=== PATIENT | female | born 1945 | race Caucasian/White ===

== ENCOUNTER 2017-04-16 15:51 | Emergency (ER) | payer MEDICARE, SELFPAY ==
[2017-04-16 16:17] VITALS: BP 124/80; PULSE 93; RESP 18; TEMP 36.9; O2SAT 98; BMI 26.3
--- NOTE | 2017-04-16 16:18 | XR_ITS ---
XR chest 2V HISTORY: ITS.REASON: COUGH ORDERING PHYSICIAN: Sara Fuller PATIENT AGE: 71 years COMPARISON: None available FINDINGS: There is severe lower thoracic scoliosis convex right. There is mild tortuosity/ectasia of the descending thoracic aorta. Normal heart size. No lobar consolidation or collapse. Minimal atelectasis or fibrosis is present in the left lung base. IMPRESSION: Minimal atelectasis or fibrosis in the left lung base. Severe thoracic scoliosis
--- NOTE | 2017-04-16 16:35 | HMH.EDUTC ---
[facility] [place] Disposition Clinical Impression: Influenza Disposition: Home, Self-Care Condition on Discharge: Good Instructions: Influenza Additional Instructions: ? Too late to start Tamiflu. Most effective when started within 48 hours of symptoms onset ? Lots of rest ? Increase Fluids water, Gatorade, powerade, pedialyte,if infant/toddler/child ? Alternate Tylenol and / or ibuprofen as discussed for fever, aches, chills x 24 hours without medication for symptoms ? Follow up IMMEDIATELY for new or worsening Symptoms OR no noticeable improvement over the next 48-72 hours, 911 for difficulty or breathing ? You or your child area contagious until no fever, aches, chills for 24 hours with medication for symptoms Referrals: Esperanza Figueroa APRN [Primary Care Provider] - Time of Disposition: 17:25 Medical Decision Making - Medical Records Medical records reviewed: Yes: I reviewed the patient's medical records. Vital Signs: 04/16/17 16:17 Temperature 98.5 F Temperature Source Temporal Artery Scan Pulse Rate [Right Brachial] 93 H Respiratory Rate 18 Blood Pressure [Right Arm] 124/80 Blood Pressure Mean [Right Arm] 94 Blood Pressure Source [Right Arm] Automatic Cuff Blood Pressure Position [Right Arm] Sitting 02 Sat by Pulse Oximetry 98 Oxygen Delivery Method Room Air - Lab Data Lab Results 04/16/17 16:17: Influenza Type A Ag Negative, Influenza Type B Ag Positive A Orders (Tests/Meds): ORDERS Category Date Time Status CXR 2 view (NOT portable) [XR chest 2V] Stat Exams 04/16/17 16:18 Taken - Radiology Data #1 Image(s): Chest Image Reviewed: Yes I reviewed the patient's radiology image w/the ED provider Preliminary Findings: Normal/NAD - Leighton Inquiry Pt receiving controlled substance: No Leighton was queried for this patient: No [facility] [place] HPI - General Stated complaint: nausea, chest congestion, cough, diarrhea Mode of Arrival: Ambulatory Source of Information: Patient Limitations: No Limitations Description of Symptoms (Recalled from Triage Doc. by RN): SUSPECT FLU OR PNEUMONIA HEENT Symptoms (Recalled from RN notes): No Resp Symptoms (Recalled from RN notes): Yes ( SUSPECTED FLU OR PNEUMONIA ) Skin Symptoms (Recalled from RN notes): No MS Symptoms (Recalled from RN notes): No Functional Status (Recalled from RN notes): N/A - History of Present Illness Provider Complaint: Patient state that she began to get sick on and began running a fever State that she had dental surgery on Mon State that she has been having fever on and off ever since State that she feels like she either has flu or pneumonia - Related Data Allergies Allergy/AdvReac Type Severity Reaction Status Date / Time Phenobarbital Allergy Intermediate I-RASH,HEART Uncoded 02/21/17 15:26 RACES,ITCHING From Bactrim Allergy Mild NA-NAUSEA/V Uncoded 02/21/17 15:26 OMITING From VALIUM Allergy Unknown HEART Uncoded 02/21/17 15:26 RACES/ITCHING HYDROCODONE Allergy Unknown ITCHING/SOB/HEART Uncoded 02/21/17 15:26 RACES - Worker's Comp Is this a Worker's Comp case?: No [place] History I have reviewed the patient's past medical history: Yes Medical History: Denies:: Diabetes Mellitus Type 1, Diabetes Mellitus Type 2 Amputation: No Fractures: No - *Social History Smoking Status: Never smoker Alcohol Intake: never - Psychiatric History Expresses thoughts of harming self/others: None Suicide Plan Description: No Plan ROS Obtained: Yes All systems reviewed & no additional complaints - Constitutional Constitutional: Reports body ache, Reports chills, Reports fever(s) Physical Exam - General General appearance: alert, in no apparent distress - Respiratory Respiratory exam: Present: normal lung sounds bilaterally. Absent: respiratory distress - Cardiovascular Cardiovascular exam: Present: regular rate, normal rhythm. Absent: JVD - Abdominal Exam Abdominal exam: Present: soft, n
[2017-04-16 16:47] LABS: UTC Influenza A Antigen Negative (Negative); UTC Influenza B Antigen Positive (Negative)
[2017-04-16 17:31] VITALS: BP 124/80; PULSE 93; RESP 18; TEMP 36.9; O2SAT 98
== END 2017-04-16 17:32 | disposition home or self-care (01) ==
PROVIDERS: Emergency Provider Nurse Practitioner; Family Provider Nurse Practitioner; PCP Nurse Practitioner
DX: J11.1 Influenza due to unidentified influenza virus with other respiratory manifestations (principal); Z88.6 Allergy status to analgesic agent; Z88.8 Allergy status to other drugs, medicaments and biological substances
CPT/HCPCS: G0463; 71046; 87804; 99202

== ENCOUNTER 2017-06-22 15:00 | Outpatient (RCR) | payer MEDICARE, SELFPAY | END 2017-06-22 15:01 | disposition home or self-care (01) | LOC: PT 15:00 | PROVIDERS: Family Provider Nurse Practitioner; PCP Nurse Practitioner; Visit Provider Nurse Practitioner | DX: L02.211 Cutaneous abscess of abdominal wall (principal); L02.91 Cutaneous abscess, unspecified | CPT/HCPCS: 97162; 97597 ==

== ENCOUNTER → 2017-07-12 15:06 | Outpatient (CLI) | payer MEDICARE, SELFPAY ==
--- NOTE | 2017-07-12 15:26 | CA_ITS ---
CA echo doppler complete PROCEDURE: INDICATIONS FOR THE TEST: Chest pain COPD Heart Murmur+ Tobacco Smoking Palpitations Fatigue Syncope Edema Hypertension+Diabetes Mellitus Rheumatic Fever SOB ESTEVES Obesity Hyperlipidemia+ Family History HD Additional History PATIENT INFORMATION HEIGHT: 61 WEIGHT:130 GENDER: Female B/P:120/80 2-D/M-MODE INTERPRETATION: 2-D MEASUREMENTS OBSERVED VALUES IN CMS Right Ventricular Dimension (RVDd) 2.6 Interventricular Septum (Thickness)(IVsd) 1.7 Left Ventricular Internal Dimensions(LVIDd) 2.8 Left Ventricular Posterior Wall (Thickness)(LVPWd) 1.1 Aortic Root 3.4 Aortic Cusp Separation 2.3 Left Atrial Dimensions (LAD) 3.7 2D 1. Left atrium is mildly enlarged, left ventricle is normal size, there is mild concentric left ventricular hypertrophy, visually estimated ejection fraction 55% with no obvious regional wall motion abnormality. 2. The right atrium and right ventricle are normal size and contractility. 3. The aortic valve is minimally thickened and fibrosed. 4. The mitral and tricuspid valve leaflets are minimally thickened. 5. The pulmonic valve is poorly visualized. 6. No significant pericardial effusion noted. DOPPLER INTERROGATION: Doppler interrogation of the aortic, mitral and tricuspid valvular presence of mild aortic, mild mitral and tricuspid regurgitation, calculated right ventricular systolic pressure is 36 mmHg consistent with mild pulmonary hypertension, grade 1 diastolic dysfunction seen without tissue Doppler evidence of raised left atrial pressure. CONCLUSION: 1. Mildly enlarged left atrium, normal left ventricular size, mild concentric left ventricular hypertrophy, visually estimated ejection fraction 55% with no obvious regional wall motion abnormality, grade 1 diastolic dysfunction seen without tissue Doppler evidence of raised left atrial pressure. 2. Mild aortic, mild mitral and tricuspid regurgitation, calculated right ventricular systolic pressure study 36 mmHg consistent with mild primary hypertension. 3. No significant pericardial effusion noted.
== END ==
PROVIDERS: Family Provider Nurse Practitioner; PCP Nurse Practitioner; Visit Provider Nurse Practitioner
DX: R01.1 Cardiac murmur, unspecified (principal)
CPT/HCPCS: 93306

== ENCOUNTER → 2019-09-26 13:13 | Outpatient (CLI) | payer MEDICARE, SELFPAY ==
--- NOTE | 2019-09-26 13:17 | MM_ITS ---
PROCEDURE: MM DIG SCREENING MAMM BI W/CAD Digital Breast Tomosynthesis Included CLINICAL INDICATION: SCREENING There is a history of breast cancer patient's 2 paternal cousins. There have been previous biopsies on each breast for benign disease. COMPARISON: [facility]B DIGITAL MAMM-SCREEN BILATERAL from 11/29/2011 DMSB DIG MAMM-SCREEN BRADY from 12/04/2014 DMSB DIG MAMM-SCREEN BRADY W/CAD from 01/18/2017 TECHNIQUE: Standard CC and MLO images and 3D Tomosynthesis was obtained. R2 CAD reviewed. FINDINGS: There is a markedly dense and heterogenic parenchymal pattern. There are scattered benign-appearing microcalcifications in each breast. Aisha images are most helpful in this type of dense breast parenchyma. There is no definite suspicious lesion in either breast though even with aisha synthesis images evaluation is difficult. I would encourage monthly breast self-examination and ultrasound if there are any new palpable lumps there are no suspicious microcalcifications. IMPRESSION: Markedly dense and heterogenic parenchymal pattern with no suspicious lesions seen BI-RAD Category: 2 Benign Finding(s) FOLLOW-UP: 1YR 1 Year Follow-up (A letter has been sent to the patient regarding results of the study.) Dictated by: Dr. Hiram Jackson MD 09/29/2019 09:[address] Hiram Jackson MD in [place] 09/29/2019 09:45
--- NOTE | 2019-09-26 13:20 | XR_ITS ---
PROCEDURE: XR MULTIPLE SPINE 6+V CLINICAL INDICATION: ACUTE BACK W/ SCIATICA, CERVICAL, THORACIC BACK PAIN Neck pain, back pain, low back pain COMPARISON: No exams were available for comparison FINDINGS: Cervical spine: Slight reversal of the cervical lordosis with 2 mm anterolisthesis of C2 on C3. There is degenerative disc disease at C3-C4 C4-C5 C5-C6 and C6-C7. Mild facet hypertrophic changes are present along with mild uncovertebral hypertrophy with mild foraminal narrowing on the right at C5-C6 and on the left at C5-C6. No fracture or dislocation. There is mild cervical curvature convex left Thoracic spine: Severe thoracolumbar curvature convex right with multilevel degenerative disc disease. No obvious acute fracture or dislocation. There is generalized osteopenia. Lumbar spine: Severe thoracolumbar curvature convex right. There is mild right lateral subluxation of L3 on L4 of 8 mm. There is multilevel degenerative disc disease at L1-L2 L2-L3 L3-L4 L4-5 and L5-S1 with facet arthritic changes. No obvious acute fracture or dislocation is evident. IMPRESSION: 1. Multi level spondylosis of the cervical thoracic and lumbar spine. Please see above for detailed description. 2. Severe thoracolumbar scoliosis convex right 3. No obvious acute fracture Dictated by: Sahil De Santiago MD 09/26/2019 14:34 Electronically signed by Sahil De Santiago MD in [place] 09/26/2019 14:34
== END ==
PROVIDERS: PCP Nurse Practitioner; Visit Provider Nurse Practitioner
DX: Z12.31 Encounter for screening mammogram for malignant neoplasm of breast (principal); M54.40 Lumbago with sciatica, unspecified side; M54.2 Cervicalgia; M54.6 Pain in thoracic spine
CPT/HCPCS: 72084; 77063; 77067

== ENCOUNTER → 2019-10-15 15:01 | Outpatient (POV) | payer MEDICARE, SELFPAY | PROVIDERS: PCP Nurse Practitioner; Visit Provider Dermatology | DX: Z00.00 Encounter for general adult medical examination without abnormal findings (principal) ==

== ENCOUNTER → 2020-06-08 13:38 | Outpatient (CLI) | payer MEDICARE, SELFPAY ==
[2020-06-08 15:21] LABS: Alanine Aminotransferase 13 U/L (12-78); Alkaline Phosphatase 67 U/L (38-126); Aspartate Amino Transferase 25 U/L (14-36); Bilirubin,Total 0.9 mg/dl (0.2-1.3); Blood Urea Nitrogen 19 mg/dl (7-17); Calcium 10.6 mg/dl (8.4-10.2); Carbon Dioxide 25 mmol/L (22.0-30.0); Chloride 97 mmol/L (98-107); Chol/HDL Ratio 3.5 (1-3.5); Cholesterol 204 mg/dl (140-200); Estimated Glomerular Filt Rate 97 ml/min (>60); GFR (African American) 118 ML/MIN (>60); Globulin 2.5 g/dL (1.3-3.2); Glucose 93 mg/dl (74-100); HDL Cholesterol 58 mg/dl (40-60); Sodium 133 mmol/L (136-145); Total Protein,Serum 7.5 g/dl (6.3-8.2); Triglycerides 189 mg/dl (30-150); VLDL Cholesterol 38 mg/dL (0-40)
[2020-06-08 15:32] LABS: Direct LDL Cholesterol 107.46 mg/dL (100-129)
[2020-06-08 15:36] LABS: Free T4 (Free Thyroxine) 1.51 ng/dl (0.78-2.19)
[2020-06-08 15:37] LABS: 25-OH Vitamin D, Total 45.8 ng/mL (30-100)
== END ==
PROVIDERS: Visit Provider Family Medicine
DX: E03.9 Hypothyroidism, unspecified (principal); I10 Essential (primary) hypertension; E78.00 Pure hypercholesterolemia, unspecified; E55.9 Vitamin D deficiency, unspecified
CPT/HCPCS: 36415; 80053; 80061; 82306; 84439; 84443

== ENCOUNTER → 2020-09-28 14:02 | Outpatient (CLI) | payer MEDICARE, SELFPAY | PROVIDERS: Visit Provider Ophthalmology | DX: Z20.822 Contact with and (suspected) exposure to COVID-19 (principal) | CPT/HCPCS: U0003 ==

== ENCOUNTER 2020-09-29 09:10 | Day surgery (SDC) | payer MEDICARE, SELFPAY ==
[2020-09-22 13:41] VITALS: BMI 29.7
[2020-09-29 09:36] VITALS: BP 132/96; PULSE 80; RESP 18; TEMP 36.1; O2SAT 97
[2020-09-29 11:33] VITALS: BP 139/71; PULSE 70; RESP 16; O2SAT 96
[2020-09-29 11:38] VITALS: BP 139/75; PULSE 72; RESP 16; O2SAT 95
[2020-09-29 11:43] VITALS: BP 132/80; PULSE 67; RESP 16; O2SAT 96
[2020-09-29 11:47] VITALS: BP 136/82; PULSE 69; RESP 16; O2SAT 97
[2020-09-29 11:50] VITALS: BP 155/89; PULSE 70; RESP 18; TEMP 36.9; O2SAT 99
== END 2020-09-29 12:02 | disposition home or self-care (01) ==
LOC: OR 09:12
PROVIDERS: PCP Family Medicine; Visit Provider Ophthalmology
DX: H25.813 Combined forms of age-related cataract, bilateral (principal); H02.831 Dermatochalasis of right upper eyelid; H02.834 Dermatochalasis of left upper eyelid; H52.223 Regular astigmatism, bilateral; Z88.6 Allergy status to analgesic agent; Z88.1 Allergy status to other antibiotic agents; Z79.899 Other long term (current) drug therapy; E78.5 Hyperlipidemia, unspecified; I11.0 Hypertensive heart disease with heart failure
CPT/HCPCS: 66984; V2632

== ENCOUNTER → 2020-10-12 11:14 | Outpatient (CLI) | payer MEDICARE, SELFPAY | PROVIDERS: Visit Provider Ophthalmology | DX: Z01.812 Encounter for preprocedural laboratory examination (principal); Z20.822 Contact with and (suspected) exposure to COVID-19 | CPT/HCPCS: U0003 ==

== ENCOUNTER 2020-10-13 08:11 | Day surgery (SDC) | payer MEDICARE, SELFPAY ==
[2020-10-09 13:36] VITALS: BMI 29.7
[2020-10-13] VITALS (8 sets, daily range): BP systolic 144–170; BP diastolic 81–102; PULSE 60–70; RESP 16–18; TEMP 36.1–37; O2SAT 96–99
== END 2020-10-13 10:28 | disposition home or self-care (01) ==
LOC: OR 08:14
PROVIDERS: PCP Family Medicine; Visit Provider Ophthalmology
DX: H25.813 Combined forms of age-related cataract, bilateral (principal); H02.831 Dermatochalasis of right upper eyelid; H02.834 Dermatochalasis of left upper eyelid; H52.223 Regular astigmatism, bilateral
CPT/HCPCS: 66984; V2632

== ENCOUNTER → 2020-11-26 13:42 | Outpatient (CLI) | payer MEDICARE, SELFPAY ==
--- NOTE | 2020-11-26 13:48 | XR_ITS ---
PROCEDURE: XR SHOULDER RT MIN 2V CLINICAL INDICATION: RT SHOULDER PAIN COMPARISON: CR CXR2V XR chest 2V from 04/16/2017 FINDINGS: No fracture or dislocation. No lytic or blastic change. There is normal mineralization. Mild osteoarthritic changes are present in the glenohumeral joint and acromioclavicular joint. Faint calcification is present along the superior aspect of the humeral head at the greater tuberosity region suggesting calcific tendinitis. Scarring or atelectatic changes present in the right mid to lower lung zone. Other findings:None. IMPRESSION: Mild osteoarthritic change of the right shoulder and acromioclavicular joint with suspected calcific tendinitis Dictated by: Sahil De Santiago MD 11/26/2020 15:33 Sahil De Santiago MD in [place] 11/26/2020 15:33
== END ==
PROVIDERS: PCP Family Medicine; Visit Provider Family Medicine
DX: M25.511 Pain in right shoulder (principal)
CPT/HCPCS: 73030

== ENCOUNTER → 2021-02-02 13:15 | Outpatient (CLI) | payer MEDICARE, SELFPAY | PROVIDERS: PCP Family Medicine; Visit Provider Family Medicine | DX: G47.33 Obstructive sleep apnea (adult) (pediatric) (principal); R06.83 Snoring; I10 Essential (primary) hypertension | CPT/HCPCS: G0399 ==

== ENCOUNTER → 2021-07-13 15:04 | Outpatient (POV) | payer MEDICARE, SELFPAY | PROVIDERS: Visit Provider Dermatology | DX: Z00.00 Encounter for general adult medical examination without abnormal findings (principal) ==

== ENCOUNTER 2021-07-23 18:19 | Emergency (ER) | payer MEDICARE, SELFPAY ==
[2021-07-23 18:59] VITALS: BMI 25.7
--- NOTE | 2021-07-23 18:59 | XR_ITS ---
PROCEDURE INFORMATION: Exam: XR Lumbosacral Spine Exam date and time: 07/23/2021 7:03 PM Age: 76 years old Clinical indication: Injury or trauma; Fall; Blunt trauma (contusions or hematomas); Injury details: PT has scoliosis TECHNIQUE: Imaging protocol: XR of the lumbosacral spine. Views: 2 or 3 views. COMPARISON: CR XR MULTIPLE SPINE 6+V 09/26/2019 1:39 PM FINDINGS: Bones/joints: Severe scoliosis convex the left. Severe multilevel degenerative disc disease with multilevel severe disc height narrowing, endplate sclerosis and facet joint arthropathy. Soft tissues: Unremarkable. Vasculature: Arthrosclerotic calcifications in the aorta. IMPRESSION: Severe chronic changes in the lumbar spine and scoliosis convex the left. No acute findings
--- NOTE | 2021-07-23 18:59 | XR_ITS ---
PROCEDURE INFORMATION: Exam: XR Thoracic Spine Exam date and time: 07/23/2021 7:00 PM Age: 76 years old Clinical indication: Injury or trauma; Fall; Blunt trauma (contusions or hematomas) TECHNIQUE: Imaging protocol: XR of the thoracic spine. Views: 2 views. COMPARISON: CR XR MULTIPLE SPINE 6+V 09/26/2019 1:39 PM FINDINGS: Bones/joints: Severe scoliosis convex the left. No acute fracture. Soft tissues: Unremarkable. IMPRESSION: Severe scoliosis. No acute findings.
[2021-07-23 19:15] VITALS: BP 151/101; PULSE 99; RESP 18; TEMP 36.8; O2SAT 95; BMI 29.2
--- NOTE | 2021-07-23 19:43 | HMH.EDUTC ---
[facility] [place] Disposition Clinical Impression: Back pain Qualifiers: Back pain location: back pain in unspecified location Chronicity: unspecified Back pain laterality: midline Qualified Code(s): M54.89 - Other dorsalgia Disposition: Home, Self-Care Condition on Discharge: Good Instructions: DI for Chronic Pain -- Adult, Methocarbamol, Prednisone Additional Instructions: *Ibuprofen jose 6 hours with meal as needed for pain/inflammation if you can take it *Not additional anti-inflammatory like motrin, aleve, advil with the above amount of ibuprofen. You can still take Tylenol every 4 hours as needed if you need something else for pain *Ice 20 minutes every 2 hours for the first 48 hours after the initial injury followed by moist heat every 20 minutes 3-4 times a day to affected area *Muscle relaxer every 12 hours as needed for muscle spasms but remember, it WILL cause drowsiness You cannot take it and drive, operate machinery or care for small children. *Keep this area active, no movement leads to more stiffness, However take it easy and avoid heavy lifting pushing or pulling *Follow up with you family doctor if no improvement for further treatment Prescriptions: predniSONE [Deltasone 10mg tablet] 10 mg PO BID 3 Days #6 tab Transmission Status: Pending to [id number] methocarbamoL [Methocarbamol] 500 mg PO BID PRN #10 tab PRN Reason: Muscle Spasm Transmission Status: Pending to [id number] Referrals: Stanton King MD [Primary Care Provider] - As needed Time of Disposition: 20:08 Medical Decision Making - Leighton Inquiry Pt receiving controlled substance: No Leighton was queried for this patient: No Vital Signs: 07/23/21 19:15 Temperature 98.2 F Temperature Source Oral Pulse Rate [Left Brachial] 99 H Respiratory Rate 18 Blood Pressure [Left Arm] 151/101 H Blood Pressure Mean [Left Arm] 117 Blood Pressure Source [Left Arm] Automatic Cuff Blood Pressure Position [Left Arm] Sitting 02 Sat by Pulse Oximetry 95 Oxygen Delivery Method Room Air - Radiology Data #1 Image(s): T-Spine Image Reviewed: Yes I have reviewed radiologist's interpretation IMPRESSION: Severe scoliosis. No acute findings. #2 Image(s): L-Spine Image Reviewed: Yes I have reviewed radiologist's interpretation IMPRESSION: Severe chronic changes in the lumbar spine and scoliosis convex the left. No acute findings Medical Decision Narrative: Due to patient age discussed medication with pharmacy and dosed Methocarbamol for spasms and prednisone [facility] [place] HPI - General Stated complaint: [id number] BACK Time Seen by Provider: 07/23/21 19:43 Mode of Arrival: Ambulatory Source of Information: Patient Limitations: No Limitations Description of Symptoms (Recalled from Triage Doc. by RN): PATIENT C/O UPPER AND MID BACK PAIN. SHE STATES SHE MAY HAVE PULLED A MUSCLE EARLIER IN THE WEEK, AND STATES YESTERDAY SHE FELL AND TWISTED HER BACK AGAIN. HEENT Symptoms (Recalled from RN notes): No Resp Symptoms (Recalled from RN notes): No Skin Symptoms (Recalled from RN notes): No MS Symptoms (Recalled from RN notes): Yes Functional Status (Recalled from RN notes): WNL - History of Present Illness Provider Complaint: Patient states that she has chronic back pain State that she pulled a muscle in her mid back earlier in the week and yesterday she slipped and fell and pulled her back again States that since then she is having muscle spasm in her mid back that is worse with movement States that she has tried taking OTC medications but it hasnt helped and wanted to come in and get it checked and get something for the spasms - Related Data Home Medications Medication Instructions Recorded Confirmed amlodipine 5 mg tablet 5 mg PO DAILY 06/29/20 03/31/21 carvedilol 3.125 mg tablet 6.25 mg PO BID 06/29/20 03/31/21 cetirizine 10 mg tablet 25 mg PO DAILY PRN 06/29/20 03/31/21 cholecalciferol (vitamin D3) 25 25 mcg PO DAILY
[2021-07-23 20:10] VITALS: BP 151/101; PULSE 99; RESP 18; TEMP 36.8; O2SAT 95
== END 2021-07-23 20:17 | disposition home or self-care (01) ==
PROVIDERS: Emergency Provider Nurse Practitioner; PCP Family Medicine
DX: M54.89 Other dorsalgia (principal); W18.30XA Fall on same level, unspecified, initial encounter; K21.9 Gastro-esophageal reflux disease without esophagitis; F41.8 Other specified anxiety disorders; Z79.899 Other long term (current) drug therapy
CPT/HCPCS: 72070; 72100; 99212; G0463

== ENCOUNTER → 2022-03-29 15:23 | Outpatient (CLI) | payer MEDICARE, SELFPAY ==
--- NOTE | 2022-03-29 15:28 | XR_ITS ---
FINAL REPORT CLINICAL HISTORY: CHRONIC COUGH, respiratory infection for 4 weeks also, congestion. COMPARISON: 04/16/2017 FINDINGS: Two views of the chest show lungs to be hypoinflated. Pulmonary vascularity is normal. Heart and mediastinum are unremarkable. There is advanced scoliosis. No pleural effusion is present. IMPRESSION: No active disease. Reviewed, Interpreted and Dictated by Brenda Baird MD Transcribed by Falguni Vásquez Authenticated and [facility]
== END ==
PROVIDERS: PCP Physician Assistant; Visit Provider Physician Assistant
DX: R05.3 Chronic cough (principal)
CPT/HCPCS: 71046

== ENCOUNTER → 2022-05-17 13:58 | Outpatient (POV) | payer MEDICARE, SELFPAY | PROVIDERS: Visit Provider Dermatology | DX: Z00.00 Encounter for general adult medical examination without abnormal findings (principal) ==

== ENCOUNTER → 2022-06-21 14:08 | Outpatient (POV) | payer MEDICARE, SELFPAY | PROVIDERS: Visit Provider Dermatology | DX: Z00.00 Encounter for general adult medical examination without abnormal findings (principal) ==

== ENCOUNTER → 2022-06-28 14:03 | Outpatient (POV) | payer MEDICARE, SELFPAY | PROVIDERS: Visit Provider Dermatology | DX: Z00.00 Encounter for general adult medical examination without abnormal findings (principal) ==

== ENCOUNTER → 2022-10-26 09:16 | Outpatient (CLI) | payer MEDICARE, SELFPAY ==
--- NOTE | 2022-10-26 | XR_ITS ---
FINAL REPORT TECHNIQUE: 5 views CLINICAL HISTORY: lower back pain COMPARISON: None FINDINGS: There is no fracture present. There is 60 degrees of lumbar scoliosis present, convex to the patient's right. There is severe degenerative disc disease in the mid and lower lumbar spine. IMPRESSION: 60 degree scoliosis as described with severe degenerative disc disease in the mid and lower lumbar spine. Reviewed, Interpreted and Dictated by Jona Blue MD Transcribed by Vielka Antonio Authenticated and [facility]
--- NOTE | 2022-10-26 | XR_ITS ---
FINAL REPORT CLINICAL HISTORY: right hip pain COMPARISON: None FINDINGS: RIGHT HIP Two views of the right hip demonstrate no acute fracture or dislocation. The joint spaces appear normal. The visualized bony structures are well aligned. No soft tissue abnormality is seen. IMPRESSION: No acute bony abnormality. Reviewed, Interpreted and Dictated by Jona Blue MD Transcribed by Vielka Antonio Authenticated and [facility]
--- NOTE | 2022-10-26 09:22 | MM_ITS ---
PROCEDURE INFORMATION: Exam: MG Bilateral Screening 3D Mammography Exam date and time: 10/26/2022 9:49 AM Age: 77 years old Clinical indication: Screening. Paternal cousins had breast cancer. TECHNIQUE: Imaging protocol: Bilateral Screening tomosynthesis and 2D mammography including computer-aided detection (CAD) when performed. COMPARISON: 1. MG MM DIG SCREENING MAMM BI W/CAD 09/26/2019 1:21 PM 2. MG DMSB DIG MAMM-SCREEN BRADY W/CAD 01/18/2017 4:18 PM 3. MG DMSB DIG MAMM-SCREEN BRADY 12/04/2014 4:03 PM 4. MG DMSB DIGITAL MAMM-SCREEN BILATERAL 11/29/2011 3:08 PM FINDINGS: MAMMOGRAPHY: Breast composition: The breasts are extremely dense, which lowers the sensitivity of mammography. Mass: No suspicious mass. Architectural distortion: None. Calcifications: No suspicious calcifications. Asymmetric density: No developing asymmetry. Skin thickening: None. Axillary adenopathy: None. IMPRESSION: No mammographic evidence of malignancy. Annual screening is recommended unless otherwise clinically indicated. ASSESSMENT: BI-RADS Category 1: Negative
--- NOTE | 2022-10-26 09:23 | XR_ITS ---
FINAL REPORT CLINICAL HISTORY: POSTMENOPAUSAL COMPARISON: None FINDINGS: Using L1-4, the bone mineral density of the spine is 0.998 g/cm2, corresponding to T-score of -0.4, within normal limits. However, this is likely falsely elevated secondary to hypertrophic changes. Using the left hip, the bone mineral density of the femoral neck is 0.546 g/cm2, corresponding to a T-score of -2.7, consistent with osteoporosis. Using the right hip, the bone mineral density of the femoral neck is 0.671 g/cm2, corresponding to a T-score of -1.6, consistent with osteopenia. FRAX not reported because T score for left hip below -2.5. NOTE: T-score: Standard deviation compared with peak bone mass of young adult mean. *Following the recommendations of the International Society of Bone densitometry, classification of hip BMD is based on the lower of two T-scores; total hip or femoral neck. IMPRESSION: Diminished bone mineral density consistent with osteoporosis. Reviewed, Interpreted and Dictated by Jona Blue MD Transcribed by Nancy Jose Authenticated and [facility]
--- NOTE | 2022-10-26 09:25 | XR_ITS ---
FINAL REPORT CLINICAL HISTORY: Mid back pain COMPARISON: 07/23/2021 FINDINGS: 2 views of the thoracic spine were obtained. There is no fracture present. There is no malalignment. Vertebrae are normal in height. There is 60 degrees of thoracolumbar scoliosis convex to the right. IMPRESSION: No acute process. Scoliosis as above. Reviewed, Interpreted and Dictated by Jona Blue MD Transcribed by Nancy Jose Authenticated and [facility]
== END ==
PROVIDERS: PCP Physician Assistant; Visit Provider Physician Assistant
DX: Z12.31 Encounter for screening mammogram for malignant neoplasm of breast (principal); Z78.0 Asymptomatic menopausal state; M54.6 Pain in thoracic spine; M54.9 Dorsalgia, unspecified; M25.551 Pain in right hip; M54.41 Lumbago with sciatica, right side
CPT/HCPCS: 72072; 72110; 73502; 77063; 77067; 77080

== ENCOUNTER → 2022-11-18 14:02 | Outpatient (CLI) | payer MEDICARE, SELFPAY ==
--- NOTE | 2022-11-18 14:07 | MR_ITS ---
FINAL REPORT CLINICAL HISTORY: MID BACK PAIN FINDINGS: Multiplanar MR imaging of the thoracic spine was performed without contrast. On the sagittal T2-weighted images, disc degeneration is seen at multiple levels. There is no evidence of fracture. Endplate changes are seen at multiple levels. Dextroscoliosis is noted of the thoracolumbar spine. The thoracic spinal cord has an unremarkable appearance without evidence of mass, edema or syrinx. There is no evidence of significant canal stenosis or cord compression. On the axial images, multilevel annular bulges are seen with vertebral osteophytes. No focal soft disc protrusion is identified. There is no evidence of significant canal stenosis or cord compression. Note is made of a 26 mm subcutaneous mass in the upper thoracic subcutaneous region posteriorly likely representing a sebaceous cyst. IMPRESSION: Multilevel degenerative change with multilevel bulges and osteophytes. No focal soft disc protrusion or significant central canal stenosis. 26 mm presumed sebaceous cyst in the upper back subcutaneous tissues. Authenticated and [facility]
--- NOTE | 2022-11-18 14:07 | MR_ITS ---
FINAL REPORT CLINICAL HISTORY: MIDLINE LOW BACK PAIN WITH RIGHT SIDED SCIATICA FINDINGS: Multiplanar MR imaging of the lumbar spine was performed without contrast. On the sagittal T2-weighted images, disc degeneration is seen at multiple levels. There are endplate changes at multiple levels. On the coronal images there is severe dextroscoliosis. There is approximately 10 mm of right lateral subluxation of L3 on L4 and L4 on L5. There is no evidence of fracture. No bony mass is identified. The conus has an unremarkable appearance. L1-2: An annular bulge is present. Vertebral osteophytes are present. There is bilateral facet arthropathy. Mild right and severe left neural foraminal narrowing is seen. L2-3: An annular bulge is present. Vertebral osteophytes and bilateral facet arthropathy are present. There is mild right and severe left neural foraminal narrowing. L3-4: An annular bulge is present. Vertebral osteophytes and bilateral facet arthropathy are present. There is moderate right and severe left neural foraminal narrowing. L4-5: An annular bulge is present. Vertebral osteophytes and bilateral facet arthropathy are present. Severe right and moderate left neural foraminal narrowing is seen. L5-S1: An annular bulge is present. Vertebral osteophytes and bilateral facet arthropathy are present. There is severe right neural foraminal narrowing. IMPRESSION: Severe dextroscoliosis with right lateral subluxation of L3 on L4 and L4 on L5. Multilevel disc bulges and osteophytes with severe multilevel neural foraminal narrowing as described. No evidence of significant central canal stenosis. Authenticated and [facility]
== END ==
LOC: RAD 14:03
PROVIDERS: PCP Physician Assistant; Visit Provider Physician Assistant
DX: M54.41 Lumbago with sciatica, right side (principal); M54.9 Dorsalgia, unspecified
CPT/HCPCS: 72146; 72148; 76376

== ENCOUNTER 2023-01-06 14:00 | Outpatient (RCR) | payer MEDICARE, SELFPAY | END 2023-01-06 15:10 | disposition home or self-care (01) | LOC: PT 14:00 | PROVIDERS: PCP Physician Assistant; Visit Provider Neurological Surgery | DX: M54.16 Radiculopathy, lumbar region (principal); M54.50 Low back pain, unspecified | CPT/HCPCS: 97010; 97014; 97110; 97163; 97530; 97535; G0283 ==

== ENCOUNTER 2023-05-23 17:00 | Outpatient (RCR) | payer MEDICARE, SELFPAY ==
--- NOTE | 2023-03-29 16:22 | HMH.PTOPEV ---
PT Outpatient Evaluation Rehab PT Outpatient Evaluation Start: 03/29/23 15:09 Freq: Status: Active Protocol: Document 03/29/23 16:03 CECE (Rec: 03/29/23 16:22 CECE [id number]) E-signed By Gerard Sarah, PT Outpatient Therapy Subjective History Subjective History This is the initial PT eval for Joanne Webster, 77 yowf who presents with c/o increased stiffness and tightness in her low back and hips x several mos. She reports she had a fall ~ 7 mos ago with pain beginning ~ 5 mos ago with associated sciatica on the R LE. She had therapy previously which has resolved those symptoms, but she continues to have lingering feelings of stiffness. She has severe spinal scoliosis at baseline ( lumbar convex L, thoracic convex R with rib hump) and L LE is ~12 mm shorter than R. New diagnosis of cancer in past 12 No months? Chief Complaint Pain,Stiff Symptom Type Ache Symptoms Relieved By Rest/Positioning Symptoms Aggravated By Walking Prior Functional Limitations None Current Functional Limitations Standing,Recreation Activity, Walking,Stairs Symptom Description Activity Dependent Level of pain today (0-10) 0 Pain scale - at its worst (0-10) 6 Lumbopelvic Eval Posture Thoracic Spine Posture Standing Position Fixed Scoliosis on (R) Lumbar Spine Posture Standing Position Fixed Scoliosis on (L) Range of Motion Lumbar Spine Active Flexion Range of 0-55 Motion (degrees) Lumbar Spine Active Extension Range of 0-15 Motion (degrees) Left Lumbar Spine Lateral Flexion Active 0-2 Range of Motion (degrees) Right Lumbar Spine Lateral Flexion 0-2 Active Range of Motion (degrees) Manual Muscle Test Bilateral Knee Extension Strength Grade 5 Normal Knee Flexion Strength Grade 5 Normal Hip Flexion Strength Grade 4 Good Hip Abduction Strength Grade 4 Good Hip Adduction Strength Grade 4 Good Hip External Rotation Strength Grade 4 Good Hip Internal Rotation Strength Grade 4 Good Hip Extension Strength Grade 4 Good Oswestry Index Section 1 Pain Intensity The pain comes and goes and is moderate Section 2 Personal Care (Washing,Dresing) increase the pain, but I manage not to change my way of doing it Section 3 Lifting lifting heavy weights off the floor, but I can manage light to medium Section 4 Walking I cannot walk at all without increasing pain Section 5 Sitting I can sit in my favorite chair for as long as I like Section 6 Standing I cannot stand more than 10 minutes without increasing pain Section 7 Sleeping I get pain in bed, but it does not prevent me from sleeping well Section 8 Social Life Pain has no significant effect on my social life apart from limiting Section 9 Traveling I get extra pain while traveling, but it does not compel me to seek al Section 10 Changing Degreee of Pain My pain seems to be getting better, but improvement is slow Score and Risk Level Oswestry Sc 25 Oswestry Risk Level Severe Disability Outpatient Therapy Assessment Impairments Problems/Impairmments Palpation Tenderness,Impaired Range of Motion,Impaired Strength,Impaired Endurance, Impaired Walking,Impaired Standing,Impaired Sitting, Impaired Household Care, Impaired Stair Climbing, Impaired Incline Stepping, Impaired Stepping on Uneven Surface,Impaired Squatting, Impaired Bending,Impaired Recreational Activities, Subjective C/O Pain,Impaired Self Care/Self Management Prognosis Rehab Potential Good Clinical Impression Consistent with Diagnosis Yes Short Term Goals Number of Weeks 2 Increase Strength Yes: B LE 4+/5 throughout Increase Ability to Stand Yes: > 15 min wihtout pain Improve Oswestry Score Yes: <21 Decrease Subjective C/O Pain Yes: 5/10 at worst 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 Number of Weeks 4 Increase Strength Yes: B LE 5/5 throughout Increase Ability to Walk Yes: > 15 min without pain Improve Ability to Climb Stairs Yes Improve Oswestry Score Yes: <18 Decrease Subjective C/O Pain Yes: 3/10 at worst Patient to be Ind w/ Advanced HEP Yes Outpatient Therapy Plan of Care Treatment Plan May Include Therapeutic Exercise Including Home Yes Exercise Program Manual Therapy Techniques Yes Neuromuscular Re-education Yes Therapeutic Activities to Return to Yes Previous Functional/Work Level Gait Training Yes ADL/Self Care Education Yes Thermal Modalities Yes Electrical Stimulation Yes Ultrasound/Phonophoresis Yes Orthotics/Bracing/Splinting Yes Massage Yes Eval/Re-Eval Yes Aquatic Therapy Yes Frequency Times per week 2 Duration Number of Weeks 4 Addendums This patient is a candidate for social No or vocational rehab? Patient/Guardian verbally acknowledges Yes understanding of treatment program and consents to further treatment? Patient/Guardian verbally acknowledges Yes understanding of diagnosis, prognosis and goals for treatment? Eval Complexity PT Charges 81923 - High Complexity Shoulder/Elbow Eval Shoulder Objective Measurements Elbow Objective Measurements PHYSICIAN CERTIFICATION: I certify the specified therapy services for Joanne Nielsene are required, authorized, and reviewed every 30 days.
--- NOTE | 2023-04-28 15:34 | HMH.RHREAS ---
Rehab Reassessment Rehab OP Re-assessment Start: 03/29/23 15:09 Freq: Status: Active Protocol: Document 04/28/23 15:28 CECE (Rec: 04/28/23 15:33 PHORGIOVANNY [id number]) E-signed By Gerard Sarah, PT Oswestry Index Section 1 Pain Intensity The pain comes and goes and is moderate Section 2 Personal Care (Washing,Dresing) my way of washing or dressing even though it causes some pain Section 3 Lifting lifting heavy weights off the floor, but I can manage light to medium Section 4 Walking I cannot walk at all without increasing pain Section 5 Sitting I can sit in my favorite chair for as long as I like Section 6 Standing I cannot stand more than 10 minutes without increasing pain Section 7 Sleeping I get pain in bed, but it does not prevent me from sleeping well Section 8 Social Life My social life is normal but increases the degree of pain Section 9 Traveling I get extra pain while traveling, but it does not compel me to seek al Section 10 Changing Degreee of Pain My pain fluctuates, but overall is definitely getting better Score and Risk Level Oswestry Sc 22 Oswestry Risk Level Moderate Disability Rehab Re-assessment Subjective Subjective Pt reports she continues to have pain in her low back. but I don't limp like I was and I don't have any pain down my right leg like I did. Objective Objective Notes Pain: at worst 5/10 in low back MMT B LE: HIP FLEX = 4/5, HIP ABD= 4+/5, HIP ADD= 4+/5, KNEE FLEX 5/5, KNEE EXT 5/5. LUMBAR AROM (in deg): FLEX= 0- 60, EXT= 0-20, R SB= 0-5, L SB = 0-5 Assessment Progress Assessment Progressing as Expected Assessment Notes Pt has shown significant improvements in functional mobility, but continues to have pain limiting her ADLs. She continues to need skilled intervention to return to prior level of function. Patient goals met ST,4,[address],3 LT,2,3,4,5,6, Plan Plan Continue per initial POC. Frequency of Therapy 2 x/wk Duration of therapy 4 wks Time and Billing Re-Eval Time 14 Re-Eval Billing Units 0 PHYSICIAN CERTIFICATION: I certify the specified therapy services for Joanne W Webster are required, authorized, and reviewed every 30 days.
== END 2023-05-23 18:20 | disposition home or self-care (01) ==
LOC: PT 17:00
PROVIDERS: PCP Physician Assistant; Visit Provider Physician Assistant
DX: M54.50 Low back pain, unspecified (principal); M41.9 Scoliosis, unspecified
CPT/HCPCS: 97010; 97014; 97110; 97163; 97164; 97530; G0283

== ENCOUNTER 2024-06-21 08:21 | Outpatient (CLI) | payer MEDICARE, SELFPAY ==
--- OUTSIDE RECORDS SUMMARY | 2024-06-21 08:23 | XMS_ITS | Data Portability ---
Author Organization [facility] Address [address] [place] [address] Care Team Providers Care [facility] Attendant Name Role Phone JOANN WALKER Primary Care Provider [phone] Assessment No assessment recorded. Plan of Treatment Reminders Order Date Submit Date Provider Last Modified By Organization Details Last Modified Time Details Appointments None record ed. Lab None record ed. Referral None record ed. Procedures None record ed. Surgeries None record ed. Imaging None record ed. Medication Orders None record ed. Patient TargetsNo targets recorded. Patient InstructionsNo instructions recorded. Reason for Referral None Reported. Results Created Date Observation Date Name Description Value Unit Range Abnormal Flag Note LastModifiedBy Organization Detail LastModifiedTime 12/14/1911/18/2022 MRI, thora cic spine , w/o contr ast No observ ation record ed. [facility] Not Available 2022 10:47:34 12/14/1911/18/2022 MRI, lumba r spine , w/o contr ast No observ ation record ed. [facility] Not Available 2022 11:03:32 01/11/2010/26/2022 DEXA, axial skele ton No observ ation record ed. [email or web address] Not Available 02/21 16:20:15 02/22/20 23 10/26/2022 XR, thora cic spine , 3 view No observ ation record ed. [facility] Not Available 2022 16:28:54 02/22/20 23 10/26/2022 XR, hip, unila teral , 2 or 3 view No observ ation record ed. [facility] Not Available 2022 16:28:54 02/22/2010/26/2022 XR, lumbo sacra l spine , 4 or more view No observ ation record ed. [facility] Not Available 2022 16:28:54 Result Notes None recorded. Procedures Surgical History None recorded. Imaging Results Imaging Date Name Status LastModified by Organiz ation Details LastModified Time 11/18/2022 MRI, thoracic spine, w/o contrast completed [facility] Information not available 12/13/2022 10:47:34 11/18/2022 MRI, lumbar spine, w/o contrast completed [facility] Information not available 12/13/2022 11:03:32 10/26/2022 DEXA, axial skeleton completed [email or web address] Information not available 02/21/2023 16:20:15 10/26/2022 XR, thoracic spine, 3 view completed [facility] Information not available 02/21/2023 16:28:54 10/26/2022 XR, hip, unilateral, 2 or 3 view completed [facility] Information not available 02/21/2023 16:28:54 10/26/2022 XR, lumbosacral spine, 4 or more view completed [facility] Information not available 02/21/2023 16:28:54 Procedure Notes None recorded. Medical Equipment None Reported. Allergies Allergen ID Allergen Name Allergen Category Reaction Reaction Severity Criticality Documentation Date Start Date Code Code System Note Provider Name and Address Organization Details Recorded Time 740993 acetamino phen / hydrocodo ne medicatio n hives Not available Not available 01/29/20162013 82750 2 RxNorm React ion: HIVES ; Comme nt: Creat ed By: Dante Gomez ed Date: 2013 11:36 :19 AM; Not Available [facility] 6 08:51:58 Medications Name Sig Start Date Stop Date Status Note LastModified by Organization Details LastModified Time methocarbamo l 500 mg tablet TAKE 1/2 (ONE-HALF) TABLET BY MOUTH IN THE MORNING AND 1/2 (ONE-HALF) AT NOON AND 1 AT NIGHT NEEDED active Not Available Not Available No t Available promethazine -DM 6.25 mg-15 mg/5 mL oral syrup TAKE 5 ML BY MOUTH EVERY 6 HOURS NEEDED active Not Available Not Available No t Available carvedilol 12.5 mg tablet TAKE 1 TABLET BY MOUTH TWICE DAILY FOR 90 DAYS active Not Available Not Available No t Available cetirizine 10 mg tablet TAKE 1 TABLET BY MOUTH ONCE DAILY active Not Available Not Available No t Available benzonatate 200 mg capsule TAKE 1 CAPSULE BY MOUTH THREE TIMES DAILY NEEDED active Not Available Not Available No t Available lisinopril 20 mg tablet TAKE 1 TABLET BY MOUTH ONCE DAILY active Not Available Not Available No t Available Medrol (Dimitrios) 4 mg tablets in a dose pack Take 1 tablet by oral route. 2022 active Not Available Not Available Not Avai lable alendronate 70 mg tablet TAKE 1 TABLET BY MOUTH ONCE A WEEK IN THE MORNING WITH A FULL GLASS OF WATER, 30 MINUTES BEFORE THE FIRST MEAL, BEVERAGE OR MEDICATION OF THE DAY. REMAIN UPRIGHT active Not Available Not Available No t Available amlodipine 2.5 mg tablet TAKE 1 TABLET BY MOUTH ONCE DAILY active Not Available Not Available No t Available tramadol 50 mg tablet TAKE 1 TABLET BY MOUTH EVERY 6 HOURS 2023 active Not Available Not Available Not Avai lable meloxicam 7.5 mg tablet TAKE 1 TABLET BY MOUTH ONCE DAILY active Not Available Not Available No t Available levothyroxin e 88 mcg tablet TAKE 1 TABLET BY MOUTH ONCE DAILY active Not Available Not Available No t Available methenamine hippurate 1 gram tablet TAKE 1 TABLET BY MOUTH TWICE DAILY active Not Available Not Available No t Available montelukast 10 mg tablet TAKE 1 TABLET BY MOUTH AT BEDTIME active Not Available Not Available No t Available pravastatin 20 mg tablet TAKE 1 TABLET BY MOUTH ONCE DAILY AT BEDTIME active Not Available Not Available No t Available mupirocin 2 % topical ointment APPLY OINTMENT TOPICALLY TO AFFECTED AREA (BACK) TWICE DAILY active Not Available Not Available Not Available azelastine 137 mcg (0.1 %) nasal spray USE 1 SPRAY IN EACH NOSTRIL TWICE DAILY active Not Available Not Available Not Available hydrocortiso ne 2.5 % topical ointment APPLY OINTMENT TO AFFECTED AREA ONCE DAILY active Not Available Not Available No t Available cefdinir 300 mg capsule TAKE 1 CAPSULE BY MOUTH EVERY 12 HOURS FOR 7 DAYS active Not Available Not Available N ot Available fluticasone propionate 50 mcg/actuatio n nasal spray,suspen joann USE 1 SPRAY(S) IN EACH NOSTRIL ONCE DAILY active Not Available Not Available N ot Available duloxetine 30 mg capsule,diane yed release TAKE 1 CAPSULE BY MOUTH ONCE DAILY active Not Available Not Available No t Available BinaxNOW COVID-19 Ag Self Test kit Use as Directed on the Package active Not Available Not Available Not Available Vitals Date Recorded Body height Body mass index (BMI) Body weight Systolic blood pressure Diastolic blood pressure Provider Name and Address Organization Details Last Updated DateTime 12/12/2022 149.86 cm 31.1 kg/m2 79263.2 2 g 120 mm[Hg] 80 mm[Hg] [facility] 14:34:06 Social History None recorded. Functional Status None recorded. Mental Status None recorded. Family History Nothing Reported. Medical History No medical history recorded. Gynecological HistoryNo gynecological history recorded. Obstetrics History GPAL:G 0 P 0 0 0 0 Past Encounters Encounter ID Performer Location Encounter Start Date Encounter Closed Date Diagnosis/Indication Diagnosis SNOMED-CT Code Diagnosis ICD10 Code Diagnosis Note [id number] KOREY MORAN MD NEUROSURG [facility] [address] [place] [address] 12/12/2022 13:43:58 12/13/2022 04:09:42 Lumbar radiculopathy 777479880 M54.16 Long extensive discussion with her regarding further care. I will prescribe her a Medrol Dosepak. We will get physical therapy for her for L3-4 radiculopa thy. I will also recommend an injection at that level. I will prescribe her a low-dose pain medication with tramadol and I will see her back on an as-needed basis. I have answered all her questions. She is happy with the management plan. Health Concerns Section Related Observation LastModified by Organization Detai ls LastModified Time None Recorded Concern Status LastModified by Organization Details LastModified Time None Recorded Advance Directives Directive None Recorded Payers Encounter Date Sequence Insurance Name Policy Number Policy Gaytan Covered Member ID Gaytan Member ID Guarantor Name 12/12/2022 1 [employer] (MEDICARE REPLACEMENT/A DVANTAGE - PPO) Joanne Webster [id number] Joanne Webster Notes Date Note Type Note Provider Name and Address Organization Details Recorded Time 12/12/2022 text/html Patient is a luisa y pleasant 77-year-old woman here today in neurosurgical consultation with low back and right lower extremity pain. She is a known diagnosis of scoliosis for many years. It was recommended she have surgery almost 20 years ago but she declined. She continues to not want surgery. She states she took a fall approximately 3 weeks ago secondary to the pain down the right leg. She states approximately 3 months ago she started having more low back and right lower extremity pain. It will radiate down the lateral aspect of her leg and stops at the knee. It never goes below the knee. She has not any physical therapy nor pain management. She takes methocarbamol and Tylenol. No other neurologic complaints. Imaging: I personally reviewed her lumbar MRI which demonstrates a lateral subluxation at L3-4 and L4-5 with severe scoliosis into the thoracic spine KOREY MORAN MD [address] [place] [address], [phone], [facility] 12/12/2022 15:43:39 OBGyn Episode No OBEpisode recorded.
--- OUTSIDE RECORDS SUMMARY | 2024-06-21 08:24 | XMS_ITS ---
Author Organization Unknown Medications Date Medication Dosage DosageUnit StartDate StopDate StopReason Active DoseQuantity DoseUnit Dispense DispenseUnit Refills NdcCode DrugCode PharmacyId IsPrescription MappedMedication Srcstatus 07/06 00:00 :00 Align 4 MG Capsule 0 28 [id number] 463 Discontinu ed 05/23 00:00 :00 Align 4 MG Capsule 1 28 [id number] 463 Not Taking 03/15 00:00 :00 Align 4 MG Capsule 1 28 [id number] 463 Taking 01/20 00:00 :00 Align 4 MG Capsule 1 28 [id number] 463 Taking 11/02 00:00 :00 Align 4 MG Capsule 1 28 [id number] 463 Taking 10/21 00:00 :00 Align 4 MG Capsule 1 28 [id number] 463 Taking 09/23 00:00 :00 Align 4 MG Capsule 1 28 [id number] 463 Taking 09/01 00:00 :00 Align 4 MG Capsule 1 28 [id number] 463 Taking 08/06 00:00 :00 Align 4 MG Capsule 1 28 [id number] 463 Taking 03/24 00:00 :00 ALIGN 4 mg capsule 1 28 [id number] 866 Taking 03/24 00:00 :00 AMLODIPINE 2.5 mg tablet 1 30 4 [id number] 995 909 Taking 03/01 00:00 :00 AMLODIPINE 2.5 mg tablet 1 30 4 49270 995 909 Taking 02/18 00:00 :00 AMLODIPINE 2.5 mg tablet 1 30 4 18468 995 909 Start 02/18 00:00 :00 AMLODIPINE 2.5 mg tablet 0 30 4 12614 995 909 Stop 01/03 00:00 :00 AMLODIPINE 2.5 mg tablet 08/27/2021 00:00:00 1 30 4 [id number] 5 909 P Taking 11/18 00:00 :00 AMLODIPINE 2.5 mg tablet 08/27/2021 00:00:00 1 30 4 [id number] 5 909 P Unknown Status 09/09 00:00 :00 AMLODIPINE 2.5 mg tablet 08/27/2021 00:00:00 1 30 4 [id number] 5 909 P Taking 08/27 00:00 :00 AMLODIPINE 2.5 mg tablet 08/27/2021 00:00:00 1 30 4 [id number] 5 909 P Start 08/27 00:00 :00 AMLODIPINE 5 mg tablet 0 [id number] 3 890 Stop 07/30 00:00 :00 AMLODIPINE 5 mg tablet 1 [id number] 3 890 Continue 07/30 00:00 :00 AMLODIPINE 5 mg tablet 1 30 5 [id number] 3 890 Taking 07/13 00:00 :00 AMLODIPINE 5 mg tablet 1 30 5 [id number] 3 890 Start 07/13 00:00 :00 AMLODIPINE 5 mg tablet 0 30 1 [id number] 3 890 Stop 06/07 00:00 :00 AMLODIPINE 5 mg tablet 1 [id number] 3 890 P Decrease 06/07 00:00 :00 AMLODIPINE 5 mg tablet 1 [id number] 3 890 P Taking 02/20 00:00 :00 amLODIPine Besylate 2.5 MG Tablet 1 90 Tablet 1 [id number] 605 Start 02/20 00:00 :00 amLODIPine Besylate 2.5 MG Tablet 0 90 Tablet 0 [id number] 605 Stop 11/24 00:00 :00 amLODIPine Besylate 2.5 MG Tablet 1 90 Tablet 0 [id number] 605 Start 11/24 00:00 :00 amLODIPine Besylate 2.5 MG Tablet 0 90 Tablet 1 00485994 705 Stop 08/17 00:00 :00 amLODIPine Besylate 2.5 MG Tablet 1 90 Tablet 1 [id number] 705 Taking 07/09 00:00 :00 amLODIPine Besylate 2.5 MG Tablet 1 90 Tablet 1 [id number] 705 Taking 07/06 00:00 :00 amLODIPine Besylate 2.5 MG Tablet 1 90 Tablet 1 [id number] 705 Taking 05/25 00:00 :00 amLODIPine Besylate 2.5 MG Tablet 1 90 Tablet 1 [id number] 705 Start 05/25 00:00 :00 amLODIPine Besylate 2.5 MG Tablet 0 90 Tablet 0 [id number] 705 Stop 05/23 00:00 :00 amLODIPine Besylate 2.5 MG Tablet 1 90 Tablet 0 [id number] 705 Taking 03/15 00:00 :00 amLODIPine Besylate 2.5 MG Tablet 1 90 Tablet 0 [id number] 705 Taking 03/01 00:00 :00 amLODIPine Besylate 2.5 MG Tablet 1 90 Tablet 0 [id number] 705 Start 03/01 00:00 :00 amLODIPine Besylate 2.5 MG Tablet 0 90 Tablet 1 [id number] 305 Stop 01/20 00:00 :00 amLODIPine Besylate 2.5 MG Tablet 1 90 Tablet 1 [id number] 305 P Taking 11/02 00:00 :00 amLODIPine Besylate 2.5 MG Tablet 1 90 Tablet 1 [id number] 305 P Taking 10/21 00:00 :00 amLODIPine Besylate 2.5 MG Tablet 1 90 Tablet 1 [id number] 305 P Taking 09/23 00:00 :00 amLODIPine Besylate 2.5 MG Tablet 1 90 Tablet 1 [id number] 305 P Taking 09/01 00:00 :00 amLODIPine Besylate 2.5 MG Tablet 1 90 Tablet 1 [id number] 305 P Unknown Status 09/01 00:00 :00 amLODIPine Besylate 2.5 MG Tablet 1 15 Tablet 0 [id number] 305 Taking 08/19 00:00 :00 amLODIPine Besylate 2.5 MG Tablet 1 15 Tablet 0 [id number] 305 Start 08/19 00:00 :00 amLODIPine Besylate 2.5 MG Tablet 0 30 4 004 29042 305 Stop 08/06 00:00 :00 amLODIPine Besylate 2.5 MG Tablet 1 30 4 00453 305 Taking 10/12 00:00 :00 Azelastine HCl 137 MCG/SPR AY Solution 1 1 5 82762926 430 Start 10/12 00:00 :00 Azelastine HCl 137 MCG/SPR AY Solution 0 1 5 63649637 430 Stop 08/17 00:00 :00 Azelastine HCl 137 MCG/SPR AY Solution 09/23/2022 00:00:00 1 1 5 [id number] 1 430 P Taking 07/09 00:00 :00 Azelastine HCl 137 MCG/SPR AY Solution 09/23/2022 00:00:00 1 1 5 [id number] 1 430 P Taking 07/06 00:00 :00 Azelastine HCl 137 MCG/SPR AY Solution 09/23/2022 00:00:00 1 1 5 [id number] 1 430 P Taking 05/23 00:00 :00 Azelastine HCl 137 MCG/SPR AY Solution 09/23/2022 00:00:00 1 1 5 [id number] 1 430 P Taking 03/15 00:00 :00 Azelastine HCl 137 MCG/SPR AY Solution 09/23/2022 00:00:00 1 1 5 [id number] 1 430 P Taking 01/20 00:00 :00 Azelastine HCl 137 MCG/SPR AY Solution 09/23/2022 00:00:00 1 1 5 [id number] 1 430 P Taking 11/02 00:00 :00 Azelastine HCl 137 MCG/SPR AY Solution 09/23/2022 00:00:00 1 1 5 [id number] 1 430 P Taking 10/21 00:00 :00 Azelastine HCl 137 MCG/SPR AY Solution 09/23/2022 00:00:00 1 1 5 [id number] 1 430 P Taking 09/23 00:00 :00 Azelastine HCl 137 MCG/SPR AY Solution 09/23/2022 00:00:00 1 1 5 [id number] 1 430 P Start 08/17 00:00 :00 AZO Cranberry 450MG 1 Taki ng 07/09 00:00 :00 AZO Cranberry 450MG 1 Taki ng 07/06 00:00 :00 AZO Cranberry 450MG 1 Taki ng 05/23 00:00 :00 AZO Cranberry 450MG 1 Taki ng 03/15 00:00 :00 AZO Cranberry 450MG 1 Taki ng 01/20 00:00 :00 AZO Cranberry 450MG 1 Taki ng 11/02 00:00 :00 AZO Cranberry 450MG 1 Taki ng 10/21 00:00 :00 AZO Cranberry 450MG 1 Taki ng 09/23 00:00 :00 AZO Cranberry 450MG 1 Taki ng 09/01 00:00 :00 AZO Cranberry 450MG 1 Taki ng 08/06 00:00 :00 AZO Cranberry 450MG 1 Taki ng 03/24 00:00 :00 AZO CRANBERRY 450mg 1 8765 1042 067 Taking 07/06 00:00 :00 Benzonatate 200 MG Capsule 03/01/2022 00:00:00 0 30 1 [id number] 3 205 P Discontinu ed 05/23 00:00 :00 Benzonatate 200 MG Capsule 03/01/2022 00:00:00 1 30 1 [id number] 3 205 P Not Taking 03/15 00:00 :00 Benzonatate 200 MG Capsule 03/01/2022 00:00:00 1 30 1 [id number] 3 205 P Not Taking 01/20 00:00 :00 Benzonatate 200 MG Capsule 03/01/2022 00:00:00 1 30 1 [id number] 3 205 P Not Taking 11/02 00:00 :00 Benzonatate 200 MG Capsule 03/01/2022 00:00:00 1 30 1 [id number] 3 205 P Not Taking 10/21 00:00 :00 Benzonatate 200 MG Capsule 03/01/2022 00:00:00 1 30 1 [id number] 3 205 P Not Taking 09/23 00:00 :00 Benzonatate 200 MG Capsule 03/01/2022 00:00:00 1 30 1 [id number] 3 205 P Not Taking 09/01 00:00 :00 Benzonatate 200 MG Capsule 03/01/2022 00:00:00 1 30 1 [id number] 3 205 P Not Taking 08/06 00:00 :00 Benzonatate 200 MG Capsule 03/01/2022 00:00:00 1 30 1 [id number] 3 205 P Taking 03/24 00:00 :00 BENZONATATE 200 mg capsule 03/01/2022 00:00:00 1 30 1 [id number] 1 930 P Taking 03/01 00:00 :00 BENZONATATE 200 mg capsule 03/01/2022 00:00:00 1 30 1 [id number] 1 930 P Start 12/28 00:00 :00 Carvedilol 12.5 MG Tablet 1 180 Tablet 1 [id number] 501 Start 12/28 00:00 :00 Carvedilol 12.5 MG Tablet 0 180 Tablet 1 63014974 501 Stop 08/17 00:00 :00 Carvedilol 12.5 MG Tablet 1 180 Tablet 1 24143303 501 Taking 07/09 00:00 :00 Carvedilol 12.5 MG Tablet 1 180 Tablet 1 [id number] 501 Taking 07/06 00:00 :00 Carvedilol 12.5 MG Tablet 1 180 Tablet 1 [id number] 501 Taking 07/02 00:00 :00 Carvedilol 12.5 MG Tablet 1 180 Tablet 1 [id number] 501 Start 07/02 00:00 :00 Carvedilol 12.5 MG Tablet 0 180 Tablet 1 [id number] 501 Stop 05/23 00:00 :00 Carvedilol 12.5 MG Tablet 1 180 Tablet 1 [id number] 501 Taking 03/15 00:00 :00 Carvedilol 12.5 MG Tablet 1 180 Tablet 1 [id number] 501 Taking 01/20 00:00 :00 Carvedilol 12.5 MG Tablet 1 180 Tablet 1 [id number] 501 Taking 01/03 00:00 :00 Carvedilol 12.5 MG Tablet 1 180 Tablet 1 [id number] 501 Start 01/03 00:00 :00 Carvedilol 12.5 MG Tablet 0 180 Tablet 2 48050413 501 Stop 11/02 00:00 :00 Carvedilol 12.5 MG Tablet 1 180 Tablet 2 [id number] 501 Taking 10/21 00:00 :00 Carvedilol 12.5 MG Tablet 1 180 Tablet 2 [id number] 501 Taking 09/23 00:00 :00 Carvedilol 12.5 MG Tablet 1 180 Tablet 2 [id number] 501 Taking 09/01 00:00 :00 Carvedilol 12.5 MG Tablet 1 180 Tablet 2 [id number] 501 Taking 08/06 00:00 :00 Carvedilol 12.5 MG Tablet 1 180 Tablet 2 [id number] 501 Start 07/05 00:00 :00 CARVEDILOL 12.5 mg tablet 1 180 Tablet 2 [id number] 501 Start 07/05 00:00 :00 CARVEDILOL 12.5 mg tablet 0 180 Tablet 2 [id number] 501 Stop 03/24 00:00 :00 CARVEDILOL 12.5 mg tablet 1 180 Tablet 2 [id number] 501 Taking 03/01 00:00 :00 CARVEDILOL 12.5 mg tablet 1 180 Tablet 2 [id number] 501 Taking 01/07 00:00 :00 CARVEDILOL 12.5 mg tablet 1 180 Tablet 2 [id number] 501 Start 01/07 00:00 :00 CARVEDILOL 12.5 mg tablet 0 180 Tablet 2 [id number] 501 Stop 01/03 00:00 :00 CARVEDILOL 12.5 mg tablet 1 0009 3729 501 Taking 09/09 00:00 :00 CARVEDILOL 12.5 mg tablet 1 0009 3729 501 Taking 07/30 00:00 :00 CARVEDILOL 12.5 mg tablet 1 0009 3729 501 Continue 07/30 00:00 :00 CARVEDILOL 12.5 mg tablet 1 180 Tablet 2 43401254 501 Taking 07/13 00:00 :00 CARVEDILOL 12.5 mg tablet 1 180 Tablet 2 [id number] 501 Start 07/13 00:00 :00 CARVEDILOL 12.5 mg tablet 0 180 Tablet 1 54251901 501 Stop 06/07 00:00 :00 CARVEDILOL 12.5 mg tablet 1 0009 3729 501 Continue 06/07 00:00 :00 CARVEDILOL 12.5 mg tablet 1 0009 3729 501 Taking 07/06 00:00 :00 Cefdinir 300 MG Capsule 03/15/2023 00:00:00 0 14 Capsule 0 35448981 006 P Discontinu ed 05/23 00:00 :00 Cefdinir 300 MG Capsule 03/15/2023 00:00:00 1 14 Capsule 0 [id number] 006 P Not Taking 03/15 00:00 :00 Cefdinir 300 MG Capsule 03/15/2023 00:00:00 1 14 Capsule 0 [id number] 006 P Start 10/21 00:00 :00 Cefdinir 300 MG Capsule 03/01/2022 00:00:00 1 14 Capsule 0 32852400 006 P Start 10/21 00:00 :00 Cefdinir 300 MG Capsule 03/01/2022 00:00:00 1 14 Capsule 0 [id number] 006 P Not Taking 09/23 00:00 :00 Cefdinir 300 MG Capsule 03/01/2022 00:00:00 1 14 Capsule 0 85278690 006 P Not Taking 09/01 00:00 :00 Cefdinir 300 MG Capsule 03/01/2022 00:00:00 1 14 Capsule 0 [id number] 006 P Not Taking 08/06 00:00 :00 Cefdinir 300 MG Capsule 03/01/2022 00:00:00 1 14 Capsule 0 63491655 006 P Not Taking 03/24 00:00 :00 CEFDINIR 300 mg capsule 03/01/2022 00:00:00 1 14 Capsule 0 16983924 120 P Not Taking 03/01 00:00 :00 CEFDINIR 300 mg capsule 03/01/2022 00:00:00 1 14 Capsule 0 90146910 120 P Start 07/30 00:00 :00 CEPHALEXIN 500 mg capsule 06/07/2021 00:00:00 0 14 Capsule 0 66599946 040 P Discontinu ed 06/07 00:00 :00 CEPHALEXIN 500 mg capsule 06/07/2021 00:00:00 1 14 Capsule 0 [id number] 040 P Start 04/25 00:00 :00 CETIRIZINE 10 mg tablet 1 90 2 [id number] 63 308 Start 04/25 00:00 :00 CETIRIZINE 10 mg tablet 0 90 1 826831 63 308 Stop 03/24 00:00 :00 CETIRIZINE 10 mg tablet 1 90 1 586804 63 308 Taking 03/01 00:00 :00 CETIRIZINE 10 mg tablet 1 90 1 450592 63 308 Taking 01/21 00:00 :00 CETIRIZINE 10 mg tablet 1 90 1 [id number] 63 308 Start 01/21 00:00 :00 CETIRIZINE 10 mg tablet 0 90 1 026821 63 308 Stop 01/03 00:00 :00 CETIRIZINE 10 mg tablet 06/08/2020 00:00:00 1 90 1 [id number] 3 308 P Taking 09/09 00:00 :00 CETIRIZINE 10 mg tablet 06/08/2020 00:00:00 1 90 1 [id number] 3 308 P Taking 07/30 00:00 :00 CETIRIZINE 10 mg tablet 06/08/2020 00:00:00 1 90 1 [id number] 3 308 P Unknown Status 07/30 00:00 :00 CETIRIZINE 10 mg tablet 06/08/2020 00:00:00 1 90 1 [id number] 3 308 P Taking 06/07 00:00 :00 CETIRIZINE 10 mg tablet 06/08/2020 00:00:00 1 90 1 [id number] 3 308 P Taking 10/17 00:00 :00 Cetirizine HCl 10 MG Tablet 0 90 2 [id number] 3 701 Stop 09/23 00:00 :00 Cetirizine HCl 10 MG Tablet 1 90 2 9152630 3 701 Taking 09/01 00:00 :00 Cetirizine HCl 10 MG Tablet 1 90 2 0726063 3 701 Taking 08/06 00:00 :00 Cetirizine HCl 10 MG Tablet 1 90 2 5657566 3 701 Start 03/24 00:00 :00 DEXTROMETHO RPHAN-PROME THAZINE 15 mg-6.25 mg/5 mL syrup 03/01/2022 00:00:00 1 473 mL 1 5521891 5 542 P Taking 03/01 00:00 :00 DEXTROMETHO RPHANAMANDA THAZINE 15 mg-6.25 mg/5 mL syrup 03/01/2022 00:00:00 1 473 mL 1 5361855 5 542 P Start 07/30 00:00 :00 DOXEPIN 50 mg capsule 0 [id number] 109 Stop 07/30 00:00 :00 DOXEPIN 50 mg capsule 1 90 1 40411751 109 Taking 06/24 00:00 :00 DOXEPIN 50 mg capsule 1 90 1 [id number] 109 Start 06/24 00:00 :00 DOXEPIN 50 mg capsule 0 90 1 30482052 109 Stop 06/07 00:00 :00 DOXEPIN 50 mg capsule 1 90 1 [id number] 109 Taking 03/24 00:00 :00 DULOXETINE 30 mg delayed release capsule 1 90 Capsule 2 [id number] 802 Taking 03/01 00:00 :00 DULOXETINE 30 mg delayed release capsule 1 90 Capsule 2 83959486 802 Taking 02/24 00:00 :00 DULOXETINE 30 mg delayed release capsule 1 90 Capsule 2 64347646 802 Start 02/24 00:00 :00 DULOXETINE 30 mg delayed release capsule 0 30 Capsule 5 91627796 802 Stop 01/03 00:00 :00 DULOXETINE 30 mg delayed release capsule 1 30 Capsule 5 [id number] 802 Taking 09/30 00:00 :00 DULOXETINE 30 mg delayed release capsule 1 30 Capsule 5 31212592 802 Start 09/30 00:00 :00 DULOXETINE 30 mg delayed release capsule 0 30 Capsule 1 47920000 802 Stop 09/09 00:00 :00 DULOXETINE 30 mg delayed release capsule 07/30/2021 00:00:00 1 7040747 9 802 P Continue 09/09 00:00 :00 DULOXETINE 30 mg delayed release capsule 07/30/2021 00:00:00 1 30 Capsule 1 49580122 802 P Taking 07/30 00:00 :00 DULOXETINE 30 mg delayed release capsule 07/30/2021 00:00:00 1 30 Capsule 1 69767086 802 P Start 02/21 00:00 :00 DULoxetine HCl 30 MG Capsule Delayed Release Particles 1 90 Capsule 1 99090806 103 Start 02/21 00:00 :00 DULoxetine HCl 30 MG Capsule Delayed Release Particles 0 90 Capsule 1 [id number] 103 Stop 08/27 00:00 :00 DULoxetine HCl 30 MG Capsule Delayed Release Particles 1 90 Capsule 1 [id number] 103 Start 08/27 00:00 :00 DULoxetine HCl 30 MG Capsule Delayed Release Particles 0 90 Capsule 1 [id number] 103 Stop 08/17 00:00 :00 DULoxetine HCl 30 MG Capsule Delayed Release Particles 1 90 Capsule 1 [id number] 103 Taking 07/09 00:00 :00 DULoxetine HCl 30 MG Capsule Delayed Release Particles 1 90 Capsule 1 [id number] 103 Taking 07/06 00:00 :00 DULoxetine HCl 30 MG Capsule Delayed Release Particles 1 90 Capsule 1 [id number] 103 Taking 05/23 00:00 :00 DULoxetine HCl 30 MG Capsule Delayed Release Particles 1 90 Capsule 1 [id number] 103 Taking 03/15 00:00 :00 DULoxetine HCl 30 MG Capsule Delayed Release Particles 1 90 Capsule 1 [id number] 103 Taking 02/23 00:00 :00 DULoxetine HCl 30 MG Capsule Delayed Release Particles 1 90 Capsule 1 [id number] 103 Start 02/23 00:00 :00 DULoxetine HCl 30 MG Capsule Delayed Release Particles 0 90 Capsule 1 73310410 103 Stop 01/20 00:00 :00 DULoxetine HCl 30 MG Capsule Delayed Release Particles 1 90 Capsule 1 [id number] 103 Taking 11/02 00:00 :00 DULoxetine HCl 30 MG Capsule Delayed Release Particles 1 90 Capsule 1 [id number] 103 Taking 10/21 00:00 :00 DULoxetine HCl 30 MG Capsule Delayed Release Particles 1 90 Capsule 1 [id number] 103 Taking 09/23 00:00 :00 DULoxetine HCl 30 MG Capsule Delayed Release Particles 1 90 Capsule 1 [id number] 103 Taking 09/01 00:00 :00 DULoxetine HCl 30 MG Capsule Delayed Release Particles 1 90 Capsule 1 [id number] 103 Taking 08/29 00:00 :00 DULoxetine HCl 30 MG Capsule Delayed Release Particles 1 90 Capsule 1 [id number] 103 Start 08/29 00:00 :00 DULoxetine HCl 30 MG Capsule Delayed Release Particles 0 90 Capsule 2 71514820 103 Stop 08/06 00:00 :00 DULoxetine HCl 30 MG Capsule Delayed Release Particles 1 90 Capsule 2 [id number] 103 Taking 11/06 00:00 :00 EQ Allergy Relief (Cetirizine ) 10 MG Tablet 1 90 Tablet 1 490 24070 875 Start 11/06 00:00 :00 EQ Allergy Relief (Cetirizine ) 10 MG Tablet 0 90 Tablet 1 490 82635 875 Stop 08/17 00:00 :00 EQ Allergy Relief (Cetirizine ) 10 MG Tablet 1 90 Tablet 1 490 72011 875 Taking 07/09 00:00 :00 EQ Allergy Relief (Cetirizine ) 10 MG Tablet 1 90 Tablet 1 490 63663 875 Taking 07/06 00:00 :00 EQ Allergy Relief (Cetirizine ) 10 MG Tablet 1 90 Tablet 1 490 68941 875 Taking 05/23 00:00 :00 EQ Allergy Relief (Cetirizine ) 10 MG Tablet 1 90 Tablet 1 490 99018 875 Taking 05/01 00:00 :00 EQ Allergy Relief (Cetirizine ) 10 MG Tablet 1 90 Tablet 1 490 12923 875 Start 05/01 00:00 :00 EQ Allergy Relief (Cetirizine ) 10 MG Tablet 0 90 Tablet 1 490 82711 875 Stop 03/15 00:00 :00 EQ Allergy Relief (Cetirizine ) 10 MG Tablet 1 90 Tablet 1 490 45868 875 Taking 01/20 00:00 :00 EQ Allergy Relief (Cetirizine ) 10 MG Tablet 1 90 Tablet 1 490 12724 875 Taking 11/02 00:00 :00 EQ Allergy Relief (Cetirizine ) 10 MG Tablet 1 90 Tablet 1 490 51622 875 Taking 10/21 00:00 :00 EQ Allergy Relief (Cetirizine ) 10 MG Tablet 1 90 Tablet 1 490 28095 875 Taking 10/17 00:00 :00 EQ Allergy Relief (Cetirizine ) 10 MG Tablet 1 90 Tablet 1 490 96710 875 Start 07/06 00:00 :00 Flonase Allergy Relief 50 MCG/ACT Suspension 09/01/2022 00:00:00 0 1 5 3467473 7 602 P Discontinu ed 05/23 00:00 :00 Flonase Allergy Relief 50 MCG/ACT Suspension 09/01/2022 00:00:00 1 1 5 3161836 7 602 P Not Taking 03/15 00:00 :00 Flonase Allergy Relief 50 MCG/ACT Suspension 09/01/2022 00:00:00 1 1 5 8315908 7 602 P Not Taking 01/20 00:00 :00 Flonase Allergy Relief 50 MCG/ACT Suspension 09/01/2022 00:00:00 1 1 5 [id number] 7 602 P Not Taking 11/02 00:00 :00 Flonase Allergy Relief 50 MCG/ACT Suspension 09/01/2022 00:00:00 1 1 5 5928877 7 602 P Not Taking 10/21 00:00 :00 Flonase Allergy Relief 50 MCG/ACT Suspension 09/01/2022 00:00:00 1 1 5 5513795 7 602 P Taking 09/23 00:00 :00 Flonase Allergy Relief 50 MCG/ACT Suspension 09/01/2022 00:00:00 1 1 5 4188099 7 602 P Taking 09/01 00:00 :00 Flonase Allergy Relief 50 MCG/ACT Suspension 09/01/2022 00:00:00 1 1 5 3120213 7 602 P Start 05/09 00:00 :00 Fosamax 70 MG Tablet 10/28/2022 00:00:00 1 4 2 [id number] 3 501 P Unknown Status 11/02 00:00 :00 Fosamax 70 MG Tablet 10/28/2022 00:00:00 1 4 5 8650069 3 501 P Unknown Status 08/17 00:00 :00 Fosamax 70 MG Tablet 10/28/2022 00:00:00 1 4 11 [id number] 3 501 P Taking 07/09 00:00 :00 Fosamax 70 MG Tablet 10/28/2022 00:00:00 1 4 11 [id number] 3 501 P Taking 07/06 00:00 :00 Fosamax 70 MG Tablet 10/28/2022 00:00:00 1 4 11 5020043 3 501 P Taking 05/23 00:00 :00 Fosamax 70 MG Tablet 10/28/2022 00:00:00 1 4 11 [id number] 3 501 P Taking 03/15 00:00 :00 Fosamax 70 MG Tablet 10/28/2022 00:00:00 1 4 11 [id number] 3 501 P Taking 01/20 00:00 :00 Fosamax 70 MG Tablet 10/28/2022 00:00:00 1 4 11 4676072 3 501 P Taking 11/02 00:00 :00 Fosamax 70 MG Tablet 10/28/2022 00:00:00 1 4 11 1388798 3 501 P Taking 10/28 00:00 :00 Fosamax 70 MG Tablet 10/28/2022 00:00:00 1 4 11 5246139 3 501 P Start 07/30 00:00 :00 GABAPENTIN 100 mg capsule 07/02/2021 00:00:00 0 1334595 6 561 P Stop 07/30 00:00 :00 GABAPENTIN 100 mg capsule 07/02/2021 00:00:00 1 60 1 5424419 6 561 P Taking 07/02 00:00 :00 GABAPENTIN 100 mg capsule 07/02/2021 00:00:00 1 60 1 3760369 6 561 P Unknown Status 06/07 00:00 :00 GABAPENTIN 100 mg capsule 05/11/2021 00:00:00 1 60 1 0901025 2 105 P Taking 05/09 00:00 :00 LEVOTHYROXI NE 88 mcg (0.088 mg) tablet 1 90 Tablet 2 93565435 490 Start 05/09 00:00 :00 LEVOTHYROXI NE 88 mcg (0.088 mg) tablet 0 90 Tablet 1 90223171 490 Stop 03/24 00:00 :00 LEVOTHYROXI NE 88 mcg (0.088 mg) tablet 1 90 Tablet 1 02965518 490 Taking 03/01 00:00 :00 LEVOTHYROXI NE 88 mcg (0.088 mg) tablet 1 90 Tablet 1 89307074 490 Taking 02/07 00:00 :00 LEVOTHYROXI NE 88 mcg (0.088 mg) tablet 1 90 Tablet 1 [id number] 490 Start 02/07 00:00 :00 LEVOTHYROXI NE 88 mcg (0.088 mg) tablet 0 90 Tablet 0 23679052 490 Stop 01/03 00:00 :00 LEVOTHYROXI NE 88 mcg (0.088 mg) tablet 06/08/2020 00:00:00 1 90 Tablet 0 61160 011 490 P Taking 11/11 00:00 :00 LEVOTHYROXI NE 88 mcg (0.088 mg) tablet 06/08/2020 00:00:00 1 90 Tablet 0 42743 011 490 P Unknown Status 11/11 00:00 :00 LEVOTHYROXI NE 88 mcg (0.088 mg) tablet 06/08/2020 00:00:00 1 90 Tablet 0 76590 011 490 P Unknown Status 09/09 00:00 :00 LEVOTHYROXI NE 88 mcg (0.088 mg) tablet 06/08/2020 00:00:00 1 3894337 1 490 P Taking 07/30 00:00 :00 LEVOTHYROXI NE 88 mcg (0.088 mg) tablet 06/08/2020 00:00:00 1 [id number] 1 490 P Taking 06/07 00:00 :00 LEVOTHYROXI NE 88 mcg (0.088 mg) tablet 06/08/2020 00:00:00 1 8343835 1 490 P Taking 02/04 00:00 :00 Levothyroxi ne Sodium 100 MCG Tablet 1 90 Tablet 1 88301408 190 Start 02/04 00:00 :00 Levothyroxi ne Sodium 100 MCG Tablet 0 30 Tablet 5 49466694 910 Stop 08/17 00:00 :00 Levothyroxi ne Sodium 100 MCG Tablet 1 30 Tablet 5 43925048 910 Taking 08/02 00:00 :00 Levothyroxi ne Sodium 100 MCG Tablet 1 30 Tablet 5 75492047 910 Start 08/02 00:00 :00 Levothyroxi ne Sodium 100 MCG Tablet 0 30 Tablet 1 09503397 910 Stop 07/09 00:00 :00 Levothyroxi ne Sodium 100 MCG Tablet 05/29/2023 00:00:00 1 30 Tablet 1 69618 180 910 P Taking 07/06 00:00 :00 Levothyroxi ne Sodium 100 MCG Tablet 05/29/2023 00:00:00 1 30 Tablet 1 95067 180 910 P Taking 05/24 00:00 :00 Levothyroxi ne Sodium 100 MCG Tablet 05/29/2023 00:00:00 1 30 Tablet 1 64280 180 910 P Start 05/24 00:00 :00 Levothyroxi ne Sodium 88 MCG Tablet 0 00 577660 710 Stop 05/23 00:00 :00 Levothyroxi ne Sodium 88 MCG Tablet 1 90 Tablet 1 15848224 710 Taking 05/07 00:00 :00 Levothyroxi ne Sodium 88 MCG Tablet 1 90 Tablet 1 23542907 710 Start 05/07 00:00 :00 Levothyroxi ne Sodium 88 MCG Tablet 0 30 Tablet 0 69417012 710 Stop 05/03 00:00 :00 Levothyroxi ne Sodium 88 MCG Tablet 1 30 Tablet 0 12004502 710 P Unknown Status 03/15 00:00 :00 Levothyroxi ne Sodium 88 MCG Tablet 1 90 Tablet 1 35693084 710 Taking 01/20 00:00 :00 Levothyroxi ne Sodium 88 MCG Tablet 1 90 Tablet 1 41909134 710 Taking 11/08 00:00 :00 Levothyroxi ne Sodium 88 MCG Tablet 1 90 Tablet 1 63826503 710 Start 11/08 00:00 :00 Levothyroxi ne Sodium 88 MCG Tablet 0 90 Tablet 2 55547643 710 Stop 11/02 00:00 :00 Levothyroxi ne Sodium 88 MCG Tablet 1 90 Tablet 2 38609089 710 Taking 10/21 00:00 :00 Levothyroxi ne Sodium 88 MCG Tablet 1 90 Tablet 2 18585702 710 Taking 09/23 00:00 :00 Levothyroxi ne Sodium 88 MCG Tablet 1 90 Tablet 2 67510826 710 Taking 09/01 00:00 :00 Levothyroxi ne Sodium 88 MCG Tablet 1 90 Tablet 2 50148784 710 Taking 08/06 00:00 :00 Levothyroxi ne Sodium 88 MCG Tablet 1 90 Tablet 2 [id number] 710 Start 12/19 00:00 :00 Lisinopril 20 MG Tablet 1 90 Tablet 1 6 [id number] 190 Start 12/19 00:00 :00 Lisinopril 20 MG Tablet 0 90 Tablet 0 6 [id number] 190 Stop 09/20 00:00 :00 Lisinopril 20 MG Tablet 1 90 Tablet 0 6 [id number] 190 Start 09/20 00:00 :00 Lisinopril 20 MG Tablet 0 90 Tablet 0 6 [id number] 190 Stop 08/17 00:00 :00 Lisinopril 20 MG Tablet 1 90 Tablet 0 6 [id number] 190 Taking 07/09 00:00 :00 Lisinopril 20 MG Tablet 1 90 Tablet 0 6 [id number] 190 Taking 07/06 00:00 :00 Lisinopril 20 MG Tablet 1 90 Tablet 0 6 [id number] 190 Taking 06/22 00:00 :00 Lisinopril 20 MG Tablet 1 90 Tablet 0 6 6149553 190 Start 06/22 00:00 :00 Lisinopril 20 MG Tablet 0 90 Tablet 0 6 [id number] 190 Stop 05/23 00:00 :00 Lisinopril 20 MG Tablet 1 90 Tablet 0 6 [id number] 190 Taking 03/23 00:00 :00 Lisinopril 20 MG Tablet 1 90 Tablet 0 6 [id number] 190 Start 03/23 00:00 :00 Lisinopril 20 MG Tablet 0 90 Tablet 0 6 [id number] 190 Stop 03/15 00:00 :00 Lisinopril 20 MG Tablet 1 90 Tablet 0 6 [id number] 190 Taking 01/20 00:00 :00 Lisinopril 20 MG Tablet 1 90 Tablet 0 6 [id number] 190 Taking 12/23 00:00 :00 Lisinopril 20 MG Tablet 1 90 Tablet 0 6 [id number] 190 Start 12/23 00:00 :00 Lisinopril 20 MG Tablet 0 90 Tablet 0 6 [id number] 354 Stop 11/02 00:00 :00 Lisinopril 20 MG Tablet 1 90 Tablet 0 6 [id number] 354 Taking 10/21 00:00 :00 Lisinopril 20 MG Tablet 1 90 Tablet 0 6 [id number] 354 Taking 09/23 00:00 :00 Lisinopril 20 MG Tablet 1 90 Tablet 0 6 [id number] 354 Taking 09/19 00:00 :00 Lisinopril 20 MG Tablet 1 90 Tablet 0 6 [id number] 354 Start 09/19 00:00 :00 Lisinopril 20 MG Tablet 0 90 Tablet 2 0 [id number] 801 Stop 09/01 00:00 :00 Lisinopril 20 MG Tablet 1 90 Tablet 2 0 [id number] 801 Taking 08/06 00:00 :00 Lisinopril 20 MG Tablet 1 90 Tablet 2 0 [id number] 801 Start 03/28 00:00 :00 LISINOPRIL 20 mg tablet 1 90 Tablet 2 7 [id number] 090 Start 03/28 00:00 :00 LISINOPRIL 20 mg tablet 0 90 Tablet 2 7 [id number] 090 Stop 03/24 00:00 :00 LISINOPRIL 20 mg tablet 1 90 Tablet 2 7 [id number] 090 Taking 03/01 00:00 :00 LISINOPRIL 20 mg tablet 1 90 Tablet 2 7 [id number] 090 Taking 01/03 00:00 :00 LISINOPRIL 20 mg tablet 1 90 Tablet 2 7 [id number] 090 Taking 09/30 00:00 :00 LISINOPRIL 20 mg tablet 1 90 Tablet 2 7 [id number] 090 Start 09/30 00:00 :00 LISINOPRIL 20 mg tablet 0 90 Tablet 1 7 [id number] 090 Stop 09/09 00:00 :00 LISINOPRIL 20 mg tablet 1 [id number] 42 090 Taking 07/30 00:00 :00 LISINOPRIL 20 mg tablet 1 [id number] 42 090 Continue 07/30 00:00 :00 LISINOPRIL 20 mg tablet 1 90 Tablet 1 7 [id number] 090 Taking 07/05 00:00 :00 LISINOPRIL 20 mg tablet 1 90 Tablet 1 7 [id number] 090 Start 07/05 00:00 :00 LISINOPRIL 20 mg tablet 0 90 Tablet 1 7 [id number] 090 Stop 06/07 00:00 :00 LISINOPRIL 20 mg tablet 07/10/2020 00:00:00 1 [id number] 2 090 P Continue 06/07 00:00 :00 LISINOPRIL 20 mg tablet 07/10/2020 00:00:00 1 [id number] 2 090 P Taking 08/17 00:00 :00 Lysine 500 MG Tablet 1 Taking 07/09 00:00 :00 Lysine 500 MG Tablet 1 Taking 07/06 00:00 :00 Lysine 500 MG Tablet 1 Taking 05/23 00:00 :00 Lysine 500 MG Tablet 1 Taking 03/15 00:00 :00 Lysine 500 MG Tablet 1 60 Taking 01/20 00:00 :00 Lysine 500 MG Tablet 1 60 Taking 11/02 00:00 :00 Lysine 500 MG Tablet 1 60 Taking 10/21 00:00 :00 Lysine 500 MG Tablet 1 60 Taking 09/23 00:00 :00 Lysine 500 MG Tablet 1 60 Taking 09/01 00:00 :00 Lysine 500 MG Tablet 1 60 Taking 08/06 00:00 :00 Lysine 500 MG Tablet 1 60 Taking 03/24 00:00 :00 LYSINE 500 mg tablet 1 60 [id number] 060 Taking 09/23 00:00 :00 Medrol 4 MG Tablet Therapy Pack 09/23/2022 00:00:00 1 1 0 4913757 5 604 P Start 08/17 00:00 :00 Melatonin 5 MG Capsule 1 1602109 1 401 Taking 07/09 00:00 :00 Melatonin 5 MG Capsule 1 3691075 1 401 Taking 07/06 00:00 :00 Melatonin 5 MG Capsule 1 5226178 1 401 Taking 05/23 00:00 :00 Melatonin 5 MG Capsule 1 9701920 1 401 Taking 03/15 00:00 :00 Melatonin 5 MG Capsule 1 7838501 1 401 Taking 01/20 00:00 :00 Melatonin 5 MG Capsule 1 7396056 1 401 Taking 11/02 00:00 :00 Melatonin 5 MG Capsule 1 9619553 1 401 Taking 10/21 00:00 :00 Melatonin 5 MG Capsule 1 9898871 1 401 Taking 09/23 00:00 :00 Melatonin 5 MG Capsule 1 2026886 1 401 Taking 09/01 00:00 :00 Melatonin 5 MG Capsule 1 1862248 1 401 Taking 08/06 00:00 :00 Melatonin 5 MG Capsule 1 7053712 1 401 Taking 03/24 00:00 :00 MELATONIN 5 mg capsule 1 9332238 5 745 Taking 07/06 00:00 :00 Meloxicam 7.5 MG Tablet 11/30/2022 00:00:00 0 30 Tablet 0 14439 141 901 P Discontinu ed 05/23 00:00 :00 Meloxicam 7.5 MG Tablet 11/30/2022 00:00:00 1 30 Tablet 0 21740 141 901 P Not Taking 03/15 00:00 :00 Meloxicam 7.5 MG Tablet 11/30/2022 00:00:00 1 30 Tablet 0 38357 141 901 P Not Taking 01/20 00:00 :00 Meloxicam 7.5 MG Tablet 11/30/2022 00:00:00 1 30 Tablet 0 97080 141 901 P Taking 12/02 00:00 :00 Meloxicam 7.5 MG Tablet 11/30/2022 00:00:00 1 30 Tablet 0 66328 141 901 P Unknown Status 11/25 00:00 :00 Meloxicam 7.5 MG Tablet 11/30/2022 00:00:00 1 30 Tablet 0 08922 141 901 P Start 03/24 00:00 :00 METAMUCIL 3.4 g/5.2 g powder for reconstitut ion 07/21/2020 00:00:00 1 7015689 4 136 P Not Taking 03/01 00:00 :00 METAMUCIL 3.4 g/5.2 g powder for reconstitut ion 07/21/2020 00:00:00 1 8899629 4 136 P Taking 01/03 00:00 :00 METAMUCIL 3.4 g/5.2 g powder for reconstitut ion 07/21/2020 00:00:00 1 [id number] 4 136 P Taking 09/09 00:00 :00 METAMUCIL 3.4 g/5.2 g powder for reconstitut ion 07/21/2020 00:00:00 1 [id number] 4 136 P Taking 07/30 00:00 :00 METAMUCIL 3.4 g/5.2 g powder for reconstitut ion 07/21/2020 00:00:00 1 [id number] 4 136 P Taking 06/07 00:00 :00 METAMUCIL 3.4 g/5.2 g powder for reconstitut ion 07/21/2020 00:00:00 1 [id number] 4 136 P Taking 07/06 00:00 :00 Metamucil Smooth Texture 58.6 % Powder 07/21/2020 00:00:00 0 5654044 1 961 P Discontinu ed 05/23 00:00 :00 Metamucil Smooth Texture 58.6 % Powder 07/21/2020 00:00:00 1 1594650 1 961 P Not Taking 03/15 00:00 :00 Metamucil Smooth Texture 58.6 % Powder 07/21/2020 00:00:00 1 [id number] 1 961 P Not Taking 01/20 00:00 :00 Metamucil Smooth Texture 58.6 % Powder 07/21/2020 00:00:00 1 8303655 1 961 P Not Taking 11/02 00:00 :00 Metamucil Smooth Texture 58.6 % Powder 07/21/2020 00:00:00 1 [id number] 1 961 P Not Taking 10/21 00:00 :00 Metamucil Smooth Texture 58.6 % Powder 07/21/2020 00:00:00 1 [id number] 1 961 P Not Taking 09/23 00:00 :00 Metamucil Smooth Texture 58.6 % Powder 07/21/2020 00:00:00 1 [id number] 1 961 P Not Taking 09/01 00:00 :00 Metamucil Smooth Texture 58.6 % Powder 07/21/2020 00:00:00 1 5281473 1 961 P Not Taking 08/06 00:00 :00 Metamucil Smooth Texture 58.6 % Powder 07/21/2020 00:00:00 1 [id number] 1 961 P Not Taking 06/17 00:00 :00 METHENAMINE hippura te 1 g tablet 1 180 Tablet 1 67156441 001 Start 06/17 00:00 :00 METHENAMINE hippura te 1 g tablet 0 180 Tablet 1 32514266 001 Stop 03/24 00:00 :00 METHENAMINE mandela te 0.5 g tablet 06/22/2020 00:00:00 1 [id number] 4 701 P Taking 03/01 00:00 :00 METHENAMINE hippura te 1 g tablet 06/22/2020 00:00:00 1 180 Tablet 1 37640164 001 P Taking 01/03 00:00 :00 METHENAMINE hippura te 1 g tablet 06/22/2020 00:00:00 1 180 Tablet 1 69587787 001 P Taking 09/09 00:00 :00 METHENAMINE hippura te 1 g tablet 06/22/2020 00:00:00 1 180 Tablet 1 34895519 001 P Taking 07/30 00:00 :00 METHENAMINE hippura te 1 g tablet 06/22/2020 00:00:00 1 180 Tablet 1 00507103 001 P Taking 06/07 00:00 :00 METHENAMINE hippura te 1 g tablet 06/22/2020 00:00:00 1 180 Tablet 1 79813541 001 P Taking 03/18 00:00 :00 Methenamine Hippurate 1 GM Tablet 1 180 Tablet 1 89019681 201 Start 03/18 00:00 :00 Methenamine Hippurate 1 GM Tablet 0 180 Tablet 0 61082868 201 Stop 09/20 00:00 :00 Methenamine Hippurate 1 GM Tablet 1 180 Tablet 0 34104996 201 Start 09/20 00:00 :00 Methenamine Hippurate 1 GM Tablet 0 425 45880 201 Stop 08/17 00:00 :00 Methenamine Hippurate 1 GM Tablet 1 425 83706 201 Taking 07/09 00:00 :00 Methenamine Hippurate 1 GM Tablet 1 425 63939 201 Taking 07/06 00:00 :00 Methenamine Hippurate 1 GM Tablet 1 425 04885 201 Taking 05/23 00:00 :00 Methenamine Hippurate 1 GM Tablet 1 425 76991 201 Taking 03/15 00:00 :00 Methenamine Hippurate 1 GM Tablet 1 180 Tablet 1 17817321 201 Taking 01/20 00:00 :00 Methenamine Hippurate 1 GM Tablet 1 180 Tablet 1 39407800 201 Taking 12/12 00:00 :00 Methenamine Hippurate 1 GM Tablet 1 180 Tablet 1 02268287 201 Start 12/12 00:00 :00 Methenamine Hippurate 1 GM Tablet 0 180 Tablet 1 21370092 201 Stop 11/02 00:00 :00 Methenamine Hippurate 1 GM Tablet 1 180 Tablet 1 87941324 201 Taking 10/21 00:00 :00 Methenamine Hippurate 1 GM Tablet 1 180 Tablet 1 11769633 201 Taking 09/23 00:00 :00 Methenamine Hippurate 1 GM Tablet 1 180 Tablet 1 53319542 201 Taking 09/01 00:00 :00 Methenamine Hippurate 1 GM Tablet 1 180 Tablet 1 92652655 201 Taking 08/06 00:00 :00 Methenamine Hippurate 1 GM Tablet 1 180 Tablet 1 04538431 201 Start 12/25 00:00 :00 Methocarbam ol 500 MG Tablet 1 180 Tablet 1 80618084 301 Start 12/25 00:00 :00 Methocarbam ol 500 MG Tablet 0 60 Tablet 3 70 099886 401 Stop 08/17 00:00 :00 Methocarbam ol 500 MG Tablet 1 60 Tablet 3 70 248050 401 P Taking 07/24 00:00 :00 Methocarbam ol 500 MG Tablet 1 60 Tablet 3 70 036073 401 P Unknown Status 07/09 00:00 :00 Methocarbam ol 500 MG Tablet 1 60 Tablet 0 70 927678 401 Taking 07/06 00:00 :00 Methocarbam ol 500 MG Tablet 1 60 Tablet 0 70 234257 401 Taking 06/14 00:00 :00 Methocarbam ol 500 MG Tablet 1 60 Tablet 0 70 414427 401 Start 06/14 00:00 :00 Methocarbam ol 500 MG Tablet 0 60 0 364763 53 301 Stop 05/23 00:00 :00 Methocarbam ol 500 MG Tablet 1 60 0 918551 53 301 Taking 05/04 00:00 :00 Methocarbam ol 500 MG Tablet 1 60 0 368436 53 301 Start 05/04 00:00 :00 Methocarbam ol 500 MG Tablet 0 90 Tablet 0 31 789603 301 Stop 03/15 00:00 :00 Methocarbam ol 500 MG Tablet 1 90 Tablet 0 31 910289 301 Taking 03/08 00:00 :00 Methocarbam ol 500 MG Tablet 1 90 Tablet 0 31 823864 301 Start 03/08 00:00 :00 Methocarbam ol 500 MG Tablet 0 90 1 494360 05 761 Stop 01/20 00:00 :00 Methocarbam ol 500 MG Tablet 1 90 1 103878 05 761 P Taking 11/25 00:00 :00 Methocarbam ol 500 MG Tablet 1 90 1 377765 05 761 P Unknown Status 11/15 00:00 :00 Methocarbam ol 500 MG Tablet 1 30 1 135738 05 761 Start 11/15 00:00 :00 Methocarbam ol 500 MG Tablet 0 30 1 575914 05 761 Stop 11/02 00:00 :00 Methocarbam ol 500 MG Tablet 1 30 1 074399 05 761 Taking 10/21 00:00 :00 Methocarbam ol 500 MG Tablet 1 30 1 907164 05 761 Taking 10/10 00:00 :00 Methocarbam ol 500 MG Tablet 1 30 1 208978 05 761 Start 10/10 00:00 :00 Methocarbam ol 500 MG Tablet 0 30 0 975179 05 761 Stop 09/23 00:00 :00 Methocarbam ol 500 MG Tablet 09/23/2022 00:00:00 1 30 0 0508028 5 761 P Start 05/23 00:00 :00 Montelukast Sodium 10 MG Tablet 1 30 Tablet 0 29 29990407 Start 05/23 00:00 :00 Montelukast Sodium 10 MG Tablet 0 90 Tablet 0 29 29990407 Stop 02/15 00:00 :00 Montelukast Sodium 10 MG Tablet 1 90 Tablet 0 29 29990407 Start 02/15 00:00 :00 Montelukast Sodium 10 MG Tablet 0 90 1 450543 80 806 Stop 08/17 00:00 :00 Montelukast Sodium 10 MG Tablet 1 90 1 970499 80 806 Taking 08/14 00:00 :00 Montelukast Sodium 10 MG Tablet 1 90 1 433186 80 806 Start 08/14 00:00 :00 Montelukast Sodium 10 MG Tablet 0 90 1 127505 80 806 Stop 07/09 00:00 :00 Montelukast Sodium 10 MG Tablet 1 90 1 675955 80 806 Taking 07/06 00:00 :00 Montelukast Sodium 10 MG Tablet 1 90 1 951229 80 806 Taking 05/23 00:00 :00 Montelukast Sodium 10 MG Tablet 1 90 1 341590 80 806 Taking 03/15 00:00 :00 Montelukast Sodium 10 MG Tablet 1 90 1 011513 80 806 Taking 02/02 00:00 :00 Montelukast Sodium 10 MG Tablet 1 90 1 130806 80 806 Start 02/02 00:00 :00 Montelukast Sodium 10 MG Tablet 0 30 2 493580 80 806 Stop 01/20 00:00 :00 Montelukast Sodium 10 MG Tablet 1 30 2 362831 80 806 Taking 11/02 00:00 :00 Montelukast Sodium 10 MG Tablet 1 30 2 475009 80 806 Taking 10/21 00:00 :00 Montelukast Sodium 10 MG Tablet 1 30 2 436728 80 806 Taking 09/26 00:00 :00 Montelukast Sodium 10 MG Tablet 1 30 2 879712 80 806 Start 09/26 00:00 :00 Montelukast Sodium 10 MG Tablet 0 30 0 353733 80 806 Stop 09/23 00:00 :00 Montelukast Sodium 10 MG Tablet 09/01/2022 00:00:00 1 30 0 9069668 0 806 P Taking 09/01 00:00 :00 Montelukast Sodium 10 MG Tablet 09/01/2022 00:00:00 1 30 0 8197332 0 806 P Start 07/06 00:00 :00 Moxifloxaci n HCl 0.5 % Solution 03/15/2023 00:00:00 0 1 0 5556615 3 035 P Discontinu ed 05/23 00:00 :00 Moxifloxaci n HCl 0.5 % Solution 03/15/2023 00:00:00 1 1 0 3529275 3 035 P Not Taking 03/15 00:00 :00 Moxifloxaci n HCl 0.5 % Solution 03/15/2023 00:00:00 1 1 0 2048541 3 035 P Start 08/17 00:00 :00 Multiple Vitamin - Capsule 1 30 Taki ng 07/09 00:00 :00 Multiple Vitamin - Capsule 1 30 Taki ng 07/06 00:00 :00 Multiple Vitamin - Capsule 1 30 Taki ng 05/23 00:00 :00 Multiple Vitamin - Capsule 1 30 Taki ng 03/15 00:00 :00 Multiple Vitamin - Capsule 1 30 Taki ng 01/20 00:00 :00 Multiple Vitamin - Capsule 1 30 Taki ng 11/02 00:00 :00 Multiple Vitamin - Capsule 1 30 Taki ng 10/21 00:00 :00 Multiple Vitamin - Capsule 1 30 Taki ng 09/23 00:00 :00 Multiple Vitamin - Capsule 1 30 Taki ng 09/01 00:00 :00 Multiple Vitamin - Capsule 1 30 Taki ng 08/06 00:00 :00 Multiple Vitamin - Capsule 1 30 Taki ng 03/24 00:00 :00 MULTIVITAMI N Multipl e Vitamin s capsule 1 30 84897675 402 Taking 08/17 00:00 :00 [place]-3 Fish Oil 1000 MG Capsule 1 30 1 [id number] 234 Taking 07/09 00:00 :00 [place]-3 Fish Oil 1000 MG Capsule 1 30 1 [id number] 234 Taking 07/06 00:00 :00 [place]-3 Fish Oil 1000 MG Capsule 1 30 1 7930938 234 Taking 05/23 00:00 :00 [place]-3 Fish Oil 1000 MG Capsule 1 30 1 1389845 234 Taking 03/15 00:00 :00 [place]-3 Fish Oil 1000 MG Capsule 1 30 1 3034050 234 Taking 01/20 00:00 :00 [place]-3 Fish Oil 1000 MG Capsule 1 30 1 1107084 234 Taking 11/02 00:00 :00 [place]-3 Fish Oil 1000 MG Capsule 1 30 1 5308361 234 Taking 10/21 00:00 :00 [place]-3 Fish Oil 1000 MG Capsule 1 30 1 7915598 234 Taking 09/23 00:00 :00 [place]-3 Fish Oil 1000 MG Capsule 1 30 1 6418824 234 Taking 09/01 00:00 :00 [place]-3 Fish Oil 1000 MG Capsule 1 30 1 3884801 234 Taking 08/06 00:00 :00 [place]-3 Fish Oil 1000 MG Capsule 1 30 1 8148077 234 Taking 03/24 00:00 :00 [place]-3 FISH OIL 1000 mg capsule 1 30 6 8593282 961 Taking 07/06 00:00 :00 Osteo Bi-Flex Adv Triple St - Tablet 0 307 49386 121 Discontinu ed 05/23 00:00 :00 Osteo Bi-Flex Adv Triple St - Tablet 1 307 53374 121 Not Taking 03/15 00:00 :00 Osteo Bi-Flex Adv Triple St - Tablet 1 307 69580 121 Taking 01/20 00:00 :00 Osteo Bi-Flex Adv Triple St - Tablet 1 307 10840 121 Taking 11/02 00:00 :00 Osteo Bi-Flex Adv Triple St - Tablet 1 307 66624 121 Taking 10/21 00:00 :00 Osteo Bi-Flex Adv Triple St - Tablet 1 307 90237 121 Taking 09/23 00:00 :00 Osteo Bi-Flex Adv Triple St - Tablet 1 307 69134 121 Taking 09/01 00:00 :00 Osteo Bi-Flex Adv Triple St - Tablet 1 307 26927 121 Taking 08/06 00:00 :00 Osteo Bi-Flex Adv Triple St - Tablet 1 307 28783 121 Taking 03/24 00:00 :00 OSTEO BI-FLEX ADVANCED with Ascorbi c Acid and Mineral s tablet 1 26851373 471 Taking 06/24 00:00 :00 PRAVASTATIN 20 mg tablet 1 90 2 08979 014 330 Start 06/24 00:00 :00 PRAVASTATIN 20 mg tablet 0 90 1 15362 014 330 Stop 03/28 00:00 :00 PRAVASTATIN 20 mg tablet 1 90 1 12535 014 330 Start 03/28 00:00 :00 PRAVASTATIN 20 mg tablet 0 90 1 77585 014 330 Stop 03/24 00:00 :00 PRAVASTATIN 20 mg tablet 1 90 1 43286 014 330 Taking 03/01 00:00 :00 PRAVASTATIN 20 mg tablet 1 90 1 14127 014 330 Taking 01/03 00:00 :00 PRAVASTATIN 20 mg tablet 1 90 1 03405 014 330 Taking 12/27 00:00 :00 PRAVASTATIN 20 mg tablet 1 90 1 38190 014 330 Start 12/27 00:00 :00 PRAVASTATIN 20 mg tablet 0 21788 014 330 Stop 09/09 00:00 :00 PRAVASTATIN 20 mg tablet 06/08/2020 00:00:00 1 9079325 4 330 P Taking 07/30 00:00 :00 PRAVASTATIN 20 mg tablet 06/08/2020 00:00:00 1 7950037 4 330 P Taking 06/07 00:00 :00 PRAVASTATIN 20 mg tablet 06/08/2020 00:00:00 1 8368764 4 330 P Taking 12/19 00:00 :00 Pravastatin Sodium 20 MG Tablet 1 90 1 507899 20 110 Start 12/19 00:00 :00 Pravastatin Sodium 20 MG Tablet 0 90 1 563870 20 110 Stop 08/17 00:00 :00 Pravastatin Sodium 20 MG Tablet 1 90 1 831816 20 110 Taking 07/09 00:00 :00 Pravastatin Sodium 20 MG Tablet 1 90 1 325910 20 110 Taking 07/06 00:00 :00 Pravastatin Sodium 20 MG Tablet 1 90 1 576520 20 110 Taking 06/28 00:00 :00 Pravastatin Sodium 20 MG Tablet 1 90 1 885027 20 110 Start 06/28 00:00 :00 Pravastatin Sodium 20 MG Tablet 0 90 1 587907 20 110 Stop 05/23 00:00 :00 Pravastatin Sodium 20 MG Tablet 1 90 1 566195 20 110 Taking 03/15 00:00 :00 Pravastatin Sodium 20 MG Tablet 1 90 1 297424 20 110 Taking 01/20 00:00 :00 Pravastatin Sodium 20 MG Tablet 1 90 1 408382 20 110 Taking 12/15 00:00 :00 Pravastatin Sodium 20 MG Tablet 1 90 1 824121 20 110 Start 12/15 00:00 :00 Pravastatin Sodium 20 MG Tablet 0 90 2 772337 20 110 Stop 11/02 00:00 :00 Pravastatin Sodium 20 MG Tablet 1 90 2 092851 20 110 Taking 10/21 00:00 :00 Pravastatin Sodium 20 MG Tablet 1 90 2 633681 20 110 Taking 09/23 00:00 :00 Pravastatin Sodium 20 MG Tablet 1 90 2 207618 20 110 Taking 09/01 00:00 :00 Pravastatin Sodium 20 MG Tablet 1 90 2 422183 20 110 Taking 08/06 00:00 :00 Pravastatin Sodium 20 MG Tablet 1 90 2 792898 20 110 Start 07/06 00:00 :00 Promethazin e-DM 6.25-15 MG/5ML Syrup 0 240 mL 1 78944342 701 Discontinu ed 06/11 00:00 :00 Promethazin e-DM 6.25-15 MG/5ML Syrup 1 240 mL 1 97298611 701 Start 06/11 00:00 :00 Promethazin e-DM 6.25-15 MG/5ML Syrup 0 240 mL 1 02125225 701 Stop 05/23 00:00 :00 Promethazin e-DM 6.25-15 MG/5ML Syrup 03/15/2023 00:00:00 1 240 mL 1 7004112 5 701 P Taking 05/23 00:00 :00 Promethazin e-DM 6.25-15 MG/5ML Syrup 03/01/2022 00:00:00 1 473 mL 1 2004887 0 405 P Not Taking 03/15 00:00 :00 Promethazin e-DM 6.25-15 MG/5ML Syrup 03/15/2023 00:00:00 1 240 mL 1 [id number] 5 701 P Start 03/15 00:00 :00 Promethazin e-DM 6.25-15 MG/5ML Syrup 03/01/2022 00:00:00 1 473 mL 1 2818614 0 405 P Not Taking 01/20 00:00 :00 Promethazin e-DM 6.25-15 MG/5ML Syrup 03/01/2022 00:00:00 1 473 mL 1 0455901 0 405 P Not Taking 11/02 00:00 :00 Promethazin e-DM 6.25-15 MG/5ML Syrup 03/01/2022 00:00:00 1 473 mL 1 6609288 0 405 P Not Taking 10/21 00:00 :00 Promethazin e-DM 6.25-15 MG/5ML Syrup 03/01/2022 00:00:00 1 473 mL 1 7401559 0 405 P Taking 09/23 00:00 :00 Promethazin e-DM 6.25-15 MG/5ML Syrup 03/01/2022 00:00:00 1 473 mL 1 4090421 0 405 P Taking 09/01 00:00 :00 Promethazin e-DM 6.25-15 MG/5ML Syrup 03/01/2022 00:00:00 1 473 mL 1 7958925 0 405 P Taking 08/06 00:00 :00 Promethazin e-DM 6.25-15 MG/5ML Syrup 03/01/2022 00:00:00 1 473 mL 1 4031087 0 405 P Taking 08/17 00:00 :00 traMADol HCl 50 MG Tablet 1 8493298 5 801 Taking 07/09 00:00 :00 traMADol HCl 50 MG Tablet 1 3815010 5 801 Taking 07/06 00:00 :00 traMADol HCl 50 MG Tablet 1 0581122 5 801 Taking 05/23 00:00 :00 traMADol HCl 50 MG Tablet 1 1844965 5 801 Taking 07/06 00:00 :00 Triamcinolo ne Acetonide 0.1 % Cream 05/11/2021 00:00:00 0 15 grams 0 240912 00 415 P Discontinu ed 05/23 00:00 :00 Triamcinolo ne Acetonide 0.1 % Cream 05/11/2021 00:00:00 1 15 grams 0 975479 00 415 P Not Taking 03/15 00:00 :00 Triamcinolo ne Acetonide 0.1 % Cream 05/11/2021 00:00:00 1 15 grams 0 079086 00 415 P Not Taking 01/20 00:00 :00 Triamcinolo ne Acetonide 0.1 % Cream 05/11/2021 00:00:00 1 15 grams 0 966712 00 415 P Not Taking 11/02 00:00 :00 Triamcinolo ne Acetonide 0.1 % Cream 05/11/2021 00:00:00 1 15 grams 0 445613 00 415 P Not Taking 10/21 00:00 :00 Triamcinolo ne Acetonide 0.1 % Cream 05/11/2021 00:00:00 1 15 grams 0 815101 00 415 P Not Taking 09/23 00:00 :00 Triamcinolo ne Acetonide 0.1 % Cream 05/11/2021 00:00:00 1 15 grams 0 929279 00 415 P Not Taking 09/01 00:00 :00 Triamcinolo ne Acetonide 0.1 % Cream 05/11/2021 00:00:00 1 15 grams 0 134850 00 415 P Not Taking 08/06 00:00 :00 Triamcinolo ne Acetonide 0.1 % Cream 05/11/2021 00:00:00 1 15 grams 0 059755 00 415 P Not Taking 03/24 00:00 :00 TRIAMCINOLO NE TOPICAL 0.1% cream 05/11/2021 00:00:00 1 15 grams 0 037978 13 159 P Not Taking 03/01 00:00 :00 TRIAMCINOLO NE TOPICAL 0.1% cream 05/11/2021 00:00:00 1 15 grams 0 914855 13 159 P Taking 01/03 00:00 :00 TRIAMCINOLO NE TOPICAL 0.1% cream 05/11/2021 00:00:00 1 15 grams 0 861286 13 159 P Taking 09/09 00:00 :00 TRIAMCINOLO NE TOPICAL 0.1% cream 05/11/2021 00:00:00 1 15 grams 0 686431 13 159 P Taking 07/30 00:00 :00 TRIAMCINOLO NE TOPICAL 0.1% cream 05/11/2021 00:00:00 1 15 grams 0 707727 13 159 P Taking 06/07 00:00 :00 TRIAMCINOLO NE TOPICAL 0.1% cream 05/11/2021 00:00:00 1 15 grams 0 299585 13 159 P Taking 08/17 00:00 :00 Turmeric 500 MG Capsule 1 866155 15 475 Taking 07/09 00:00 :00 Turmeric 500 MG Capsule 1 491316 15 475 Taking 07/06 00:00 :00 Turmeric 500 MG Capsule 1 343308 15 475 Taking 05/23 00:00 :00 Turmeric 500 MG Capsule 1 598798 15 475 Taking 03/15 00:00 :00 Turmeric 500 MG Capsule 1 136434 15 475 Taking 01/20 00:00 :00 Turmeric 500 MG Capsule 1 147773 15 475 Taking 11/02 00:00 :00 Turmeric 500 MG Capsule 1 050357 15 475 Taking 10/21 00:00 :00 Turmeric 500 MG Capsule 1 867638 15 475 Taking 09/23 00:00 :00 Turmeric 500 MG Capsule 1 294952 15 475 Taking 09/01 00:00 :00 Turmeric 500 MG Capsule 1 318213 15 475 Taking 08/06 00:00 :00 Turmeric 500 MG Capsule 1 505145 15 475 Taking 03/24 00:00 :00 TURMERIC 500 mg capsule 1 000209 90 746 Taking 08/17 00:00 :00 Tylenol Extra Strength 500 MG Tablet 1 000 06458 406 Taking 07/09 00:00 :00 Tylenol Extra Strength 500 MG Tablet 1 000 63831 406 Taking 07/06 00:00 :00 Tylenol Extra Strength 500 MG Tablet 1 000 33874 406 Taking 05/23 00:00 :00 Tylenol Extra Strength 500 MG Tablet 1 000 03038 406 Taking 03/15 00:00 :00 Tylenol Extra Strength 500 MG Tablet 1 000 31786 406 Taking 01/20 00:00 :00 Tylenol Extra Strength 500 MG Tablet 1 000 99842 406 Taking 11/02 00:00 :00 Tylenol Extra Strength 500 MG Tablet 1 000 70774 406 Taking 10/21 00:00 :00 Tylenol Extra Strength 500 MG Tablet 1 000 20959 406 Taking 09/23 00:00 :00 Tylenol Extra Strength 500 MG Tablet 1 000 32948 406 Taking 09/01 00:00 :00 Tylenol Extra Strength 500 MG Tablet 1 000 83878 406 Taking 08/06 00:00 :00 Tylenol Extra Strength 500 MG Tablet 1 000 75686 406 Taking 03/24 00:00 :00 TYLENOL EXTRA STRENGTH 500 mg tablet 1 000 52324 410 Taking 07/06 00:00 :00 Vitamin C 500 MG Tablet 0 30 660017 52 360 Discontinu ed 05/23 00:00 :00 Vitamin C 500 MG Tablet 1 30 696271 52 360 Not Taking 03/15 00:00 :00 Vitamin C 500 MG Tablet 1 30 749171 52 360 Taking 01/20 00:00 :00 Vitamin C 500 MG Tablet 1 30 273079 52 360 Taking 11/02 00:00 :00 Vitamin C 500 MG Tablet 1 30 983937 52 360 Taking 10/21 00:00 :00 Vitamin C 500 MG Tablet 1 30 967875 52 360 Taking 09/23 00:00 :00 Vitamin C 500 MG Tablet 1 30 100055 52 360 Taking 09/01 00:00 :00 Vitamin C 500 MG Tablet 1 30 763163 52 360 Taking 08/06 00:00 :00 Vitamin C 500 MG Tablet 1 30 617397 52 360 Taking 03/24 00:00 :00 VITAMIN C 500 mg tablet 1 30 020084 40 739 Taking 08/17 00:00 :00 Vitamin D3 25 MCG (1000 UT) Tablet 06/08/2020 00:00:00 1 5552391 9 840 P Taking 07/09 00:00 :00 Vitamin D3 25 MCG (1000 UT) Tablet 06/08/2020 00:00:00 1 7333318 9 840 P Taking 07/06 00:00 :00 Vitamin D3 25 MCG (1000 UT) Tablet 06/08/2020 00:00:00 1 0702280 9 840 P Taking 05/23 00:00 :00 Vitamin D3 25 MCG (1000 UT) Tablet 06/08/2020 00:00:00 1 0506742 9 840 P Taking 03/15 00:00 :00 Vitamin D3 25 MCG (1000 UT) Tablet 06/08/2020 00:00:00 1 9516446 9 840 P Taking 01/20 00:00 :00 Vitamin D3 25 MCG (1000 UT) Tablet 06/08/2020 00:00:00 1 0814074 9 840 P Taking 11/02 00:00 :00 Vitamin D3 25 MCG (1000 UT) Tablet 06/08/2020 00:00:00 1 2935886 9 840 P Taking 10/21 00:00 :00 Vitamin D3 25 MCG (1000 UT) Tablet 06/08/2020 00:00:00 1 6586686 9 840 P Taking 09/23 00:00 :00 Vitamin D3 25 MCG (1000 UT) Tablet 06/08/2020 00:00:00 1 2670237 9 840 P Taking 09/01 00:00 :00 Vitamin D3 25 MCG (1000 UT) Tablet 06/08/2020 00:00:00 1 0369254 9 840 P Taking 08/06 00:00 :00 Vitamin D3 25 MCG (1000 UT) Tablet 06/08/2020 00:00:00 1 5084006 9 840 P Taking 03/24 00:00 :00 VITAMIN D3 1000 intl units tablet 06/08/2020 00:00:00 1 P Taking 03/01 00:00 :00 VITAMIN D3 1000 intl units tablet 06/08/2020 00:00:00 1 30 Tablet 5 56978 016 900 P Taking 01/03 00:00 :00 VITAMIN D3 1000 intl units tablet 06/08/2020 00:00:00 1 30 Tablet 5 15762 016 900 P Taking 09/09 00:00 :00 VITAMIN D3 1000 intl units tablet 06/08/2020 00:00:00 1 30 Tablet 5 52255 016 900 P Taking 07/30 00:00 :00 VITAMIN D3 1000 intl units tablet 06/08/2020 00:00:00 1 30 Tablet 5 80776 016 900 P Taking 06/07 00:00 :00 VITAMIN D3 1000 intl units tablet 06/08/2020 00:00:00 1 30 Tablet 5 08229 016 900 P Taking
--- NOTE | 2024-06-21 08:26 | XR_ITS ---
FINAL REPORT TECHNIQUE: Bone densitometry calculations of the lumbar spine and bilateral hips were obtained. CLINICAL HISTORY: SCREENING COMPARISON: 10/26/2022 FINDINGS: Using L1-4, the bone mineral density of the spine is 1.030 g/cm2, corresponding to T-score of -0.2. Using the left hip, the bone mineral density of the femoral neck is 0.551 g/cm2, corresponding to a T-score of -2.7. Using the right hip, the bone mineral density of the femoral neck is 0.671 g/cm?, corresponding to a T-score of -1.6. NOTE: T-score: Standard deviation compared with peak bone mass of young adult mean. *Following the recommendations of the International Society of Bone densitometry, classification of hip BMD is based on the lower of two T-scores; total hip or femoral neck. IMPRESSION: Diminished bone mineral density of the right hip consistent with osteopenia. Diminished bone mineral density of the left hip consistent with osteoporosis. Normal bone mineral density of the lumbar spine, although this is likely artificially elevated secondary to bony sclerosis of the lumbar spine. Reviewed, Interpreted and Dictated by Jona Blue MD Transcribed by Vielka Antonio Authenticated and . [facility]
--- NOTE | 2024-06-21 08:26 | MM_ITS ---
PROCEDURE INFORMATION: Exam: MG Bilateral Screening 3D Mammography Exam date and time: 06/21/2024 8:55 AM Age: 79 years old Clinical indication: Screening examination. Paternal cousins had breast cancer. TECHNIQUE: Imaging protocol: Bilateral Screening tomosynthesis and 2D mammography including computer-aided detection (CAD) when performed. COMPARISON: 1. MG MM DIG SCREENING MAMM BI W/CAD 10/26/2022 9:49 AM 2. MG MM DIG SCREENING MAMM BI W/CAD 09/26/2019 1:21 PM 3. MG DMSB DIG MAMM-SCREEN BRADY W/CAD 01/18/2017 4:18 PM 4. MG DMSB DIG MAMM-SCREEN BRADY 12/04/2014 4:03 PM FINDINGS: MAMMOGRAPHY: Breast composition: The breasts are extremely dense, which lowers the sensitivity of mammography. Mass: No suspicious mass. Architectural distortion: None. Calcifications: No suspicious calcifications. Asymmetric density: None. Skin thickening: None. Axillary adenopathy: None. IMPRESSION: No mammographic evidence of malignancy. Annual screening is recommended unless otherwise clinically indicated. ASSESSMENT: BI-RADS Category 1: Negative.
== END 2024-06-21 23:59 | disposition home or self-care (01) ==
LOC: RAD 08:22
PROVIDERS: PCP Physician Assistant; Visit Provider Family Medicine
DX: Z12.31 Encounter for screening mammogram for malignant neoplasm of breast (principal); M85.851 Other specified disorders of bone density and structure, right thigh
CPT/HCPCS: 77063; 77067; 77080